=== PATIENT | female | born 1965 | race African-American/Black ===

== ENCOUNTER 2018-04-12 08:19 | Observation (INO) ==
--- NOTE | 2018-04-12 08:21 | PROVIDER DOCUMENTATION ---
HPI-Respiratory General - General Stated Complaint: DYSPNEA Time Seen by Provider: 04/12/18 08:21 Source: EMS Unable to obtain history due to:: urgency (patient in mod to severe resp distress) Allergies/Adverse Reactions: Patient Allergies Allergy/AdvReac Type Severity Reaction Status Date / Time influenza virus vaccine ts Allergy NAUSEA/VOMI Verified 03/23/18 18:55 201... * TING [From Fluarix] Home Medications: Home Medication List Medication Instructions Recorded Confirmed Last Taken Type Albuterol Sulfate Inhaler 2 puff INH [id number] 10/23/17 03/28/18 Unknown History [Ventolin Hfa] Albuterol Sulfate [Proair Hfa] 8.5 gm IH DIRECTED 10/23/17 03/28/18 Unknown History Alprazolam 0.25 mg PO BID 10/23/17 03/28/18 Unknown History Aspirin [Aspir-Low] 81 mg PO DAILY 10/23/17 03/28/18 Unknown History Clonidine [Catapres] 0.1 mg PO PRN PRN #60 tablet 10/23/17 03/28/18 Unknown Rx Hydrocodone/APAP 10 mg/325 mg 1 each PO Q6H PRN PRN 10/23/17 03/28/18 Unknown History [[place]-10] Hydroxyzine HCl 25 mg PO DAILY 10/23/17 03/28/18 Unknown History Metoprolol Succinate [Toprol Xl] 50 mg PO DAILY 10/23/17 03/28/18 Unknown History Montelukast Sodium [Singulair] 10 mg PO DAILY 10/23/17 03/28/18 Unknown History Pramipexole Di-HCl [Mirapex] 0.125 mg PO DAILY 10/23/17 03/28/18 Unknown History Rizatriptan [Maxalt] 10 mg PO DAILY 10/23/17 03/28/18 Unknown History Sertraline HCl [Zoloft] 100 mg PO DAILY 10/23/17 03/28/18 Unknown History Ticagrelor [Brilinta] 90 mg PO DAILY 10/23/17 03/28/18 Unknown History Valsartan [Diovan] 160 mg PO DAILY 10/23/17 03/28/18 Unknown History Zolpidem Tartrate [Ambien] 10 mg PO HS 10/23/17 03/28/18 Unknown History Benzonatate [Tessalon] 100 mg PO TID PRN PRN #20 cap 04/01/18 Unknown Rx Budesonide/Formoterol Inhaler 2 puff INH RTBID inhaler 04/01/18 Unknown Rx [Symbicort 80/4.5 Microgm Inhaler] Doxycycline 100 mg PO BID #14 tab 04/01/18 Unknown Rx Oseltamivir [Tamiflu] 75 mg PO BID #4 cap 04/01/18 Unknown Rx Prednisone See Taper PO DAILY #30 tab 04/01/18 Unknown Rx - History of Present Illness-Resp Nature of Presenting Problem: Sudden onset SOB this am on waking, had had sl uri symptoms for a couple of days prior, and a recent hospital admission for asthma/COPD/Influenza/CHF. En route, patient placed on CPAP by EMS for severe respiratory distress. Quality of Pain: reports: tightness Severity in ED: reports: severe Onset/Duration: reports: 1-3 hours ago Timing: reports: constant, getting worse Context: reports: multiple patients with similar complaints, recent URI Exposure: reports: illness exposure Cough Quality/Degree: reports: severe, dry cough Episode Frequency: occasional episodes Current Respiratory Medication Therapy: Initiated albuterol/atrovent inhale, Initiated other oral steroid Modifying Factors: improves with: albuterol inhaler, oxygen. worse with: exertion, coughing, lying down Associated Symptoms: reports: chest pain/soreness, hurts to breathe, hyperventilating, lightheadedness, shortness of breath, sweaty, wheezing Similar Symptoms Previously?: Yes Recently seen or treated by another doctor?: Yes Review of Systems - Adult - REVIEW OF SYSTEMS - ADULT Constitutional: reports: no symptoms reported Eyes: reports: no symptoms reported Ears, Nose, Mouth & Throat: reports: no symptoms reported Cardiovascular: reports: no symptoms reported Respiratory: reports: no symptoms reported Gastrointestinal: reports: no symptoms reported Genitourinary: reports: no symptoms reported Musculoskeletal: reports: no symptoms reported Integumentary: reports: no symptoms reported Neurological: reports: no symptoms reported Psychiatric: reports: no symptoms reported Endocrine: reports: no symptoms reported Hematologic/Lymphatic: reports: no symptoms reported Allergic/Immunologic: reports: no symptoms reported All Other Systems: Reviewed and Negative Past History - Adult - PAST MEDICAL HISTORY-ADULT Review of Records: reports: Old Records Reviewed, Nursing Assessment Review, Medications Reviewed, Social history reviewed & non-contributory. Major Childhood Illnesses: reports: denies history Cardiovascular: reports: CHF, HTN Respiratory: reports: asthma, COPD, lung disease, other (history of lung mass) Gastrointestinal: reports: GERD Obstetrical/Gynecological: reports: denies history Genitourinary: reports: denies history Musculoskeletal: reports: denies history Neurological: reports: headaches/migraines Psychiatric: reports: depression Endocrine/Immune: reports: denies history Other Conditions: reports: denies history - PRIOR SURGERIES/PROCEDURES Surgical/Procedure History: reports: BTL - PRIOR HOSPITALIZATIONS Prior Hospitalizations: reports: none - IMMUNIZATION STATUS Childhood Immunizations: See Nurse Assessment Flu Vaccine: See Nurse Assessment - FAMILY HISTORY Family History: reviewed, not pertinent - SOCIAL HISTORY Smoking: non-smoker Substance Use: none/never Alcohol Use Frequency: rarely Living Situation: family Physical Exam-General - PHYSICAL EXAM-ADULT Initial Vital Signs Reviewed: Yes (tachypneic, tachycardic) - CONSTITUTIONAL General Appearance: severe distress, anxious, slow to respond - EYES Eyes: PERRL/EOMI, pink conjunctivae - HEAD, EARS, NOSE, MOUTH & THROAT HENMT: normocephalic/atraumatic, moist mucous membranes, normal ENT inspection, pharynx normal - NECK Neck: non-tender, full range of motion, supple, normal inspection - RESPIRATORY Respiratory: chest non-tender, respiratory distress, decreased breath sounds, accessory muscle use, wheezing, dull on percussion, retractions, increased rate - CARDIOVASCULAR Cardiovascular: normal peripheral pulses, regular rate, rhythm, no edema, no gallop, no JVD - GASTROINTESTINAL (ABDOMEN) Abdominal Exam: normal bowel sounds, non tender, soft, no organomegaly, no pulsatile mass - LYMPHATIC Lymphatic: no adenopathy - MUSCULOSKELETAL Back Exam: normal inspection, no CVA tenderness, no vertebral tenderness, CVA tenderness, decreased range of motion Extremity: normal range of motion, non-tender, normal gait, normal inspection, no pedal edema, no calf tenderness - SKIN Integumentary: normal color, normal turgor, warm/dry - NEUROLOGIC Neurologic: tooth cutter clutch II-XII nml as tested, grossly normal, no motor/sensory deficits - PSYCHIATRIC Psych/Mental Status: normal mood/affect, normal thought content, normal thought process, oriented x 3 Progress - PLAN OF CARE/RESULTS Progress/Plan/Lab Results: Vital Signs - 8 hr 04/12/18 08:19 04/12/18 08:20 04/12/18 09:06 Pulse Rate 114 H 114 H 82 Respiratory Rate 30 H 24 14 Blood Pressure 146/110 O2 Sat by Pulse Oximetry 99 99 99 Laboratory Results - last 24 hr 04/12/18 04/12/18 04/12/18 08:25 08:25 08:25 WBC 10.36 RBC 4.96 Hgb 12.7 Hct 39.3 MCV 79.2 L MCH 25.6 L MCHC 32.3 L RDW Std Deviation 16.0 H Plt Count 295 MPV 10.7 H Immature Gran % (Auto) 0.4 Neut % (Auto) 65.1 Lymph % (Auto) 27.8 [place] % (Auto) 6.2 Eos % (Auto) 0.3 Baso % (Auto) 0.2 Immature Gran # (Auto) 0.04 Neut # (Auto) 6.75 H Lymph # (Auto) 2.88 [place] # (Auto) 0.64 H Eos # (Auto) 0.03 Baso # (Auto) 0.02 PT INR Specimen Type Sample Site pH pCO2 pO2 HCO3 Base Excess Oxyhemoglobin ABG O2 Sat (Calculated) ABG O2 Saturation ABG Carboxyhemoglobin ABG Methemoglobin [place] Test A-a O2 Difference Total Hemoglobin Lactate Blood Gas Modality Vent Mode FiO2 % Inspiratory BiPAP Expiratory BiPAP Sodium 139 Potassium 4.3 Chloride 104 Carbon Dioxide 24 L Anion Gap 11 BUN 8 Creatinine 0.7 Estimated GFR/1.73 m2 > 60 BUN/Creatinine Ratio 11 Glucose 143 H Calculated Osmolality 278 Calcium 8.9 Magnesium 1.9 Total Bilirubin 0.80 AST 31 H ALT 39 H Alkaline Phosphatase 74 Creatine Kinase 83 Troponin T Dbb-B-Lpuarvvaniv Pept Total Protein 6.8 Albumin 3.9 Globulin 3.0 Albumin/Globulin Ratio 1.0 Plasma Lactate 1.4 04/12/18 04/12/18 04/12/18 08:25 08:25 08:25 WBC RBC Hgb Hct MCV MCH MCHC RDW Std Deviation Plt Count MPV Immature Gran % (Auto) Neut % (Auto) Lymph % (Auto) [place] % (Auto) Eos % (Auto) Baso % (Auto) Immature Gran # (Auto) Neut # (Auto) Lymph # (Auto) [place] # (Auto) Eos # (Auto) Baso # (Auto) PT 12.1 INR 0.85 Specimen Type Sample Site pH pCO2 pO2 HCO3 Base Excess Oxyhemoglobin ABG O2 Sat (Calculated) ABG O2 Saturation ABG Carboxyhemoglobin ABG Methemoglobin [place] Test A-a O2 Difference Total Hemoglobin Lactate Blood Gas Modality Vent Mode FiO2 % Inspiratory BiPAP Expiratory BiPAP Sodium Potassium Chloride Carbon Dioxide Anion Gap BUN Creatinine Estimated GFR/1.73 m2 BUN/Creatinine Ratio Glucose Calculated Osmolality Calcium Magnesium Total Bilirubin AST ALT Alkaline Phosphatase Creatine Kinase Troponin T < 0.010 Oih-K-Wlxknzrpskt Pept 475 H Total Protein Albumin Globulin Albumin/Globulin Ratio Plasma Lactate 04/12/18 08:36 WBC RBC Hgb Hct MCV MCH MCHC RDW Std Deviation Plt Count MPV Immature Gran % (Auto) Neut % (Auto) Lymph % (Auto) [place] % (Auto) Eos % (Auto) Baso % (Auto) Immature Gran # (Auto) Neut # (Auto) Lymph # (Auto) [place] # (Auto) Eos # (Auto) Baso # (Auto) PT INR Specimen Type ARTERIAL Sample Site R RADIAL pH 7.30 L pCO2 49 H pO2 297 H HCO3 22.8 Base Excess -2.7 Oxyhemoglobin 97.1 ABG O2 Sat (Calculated) 18.3 ABG O2 Saturation 100.2 H ABG Carboxyhemoglobin 2.00 ABG Methemoglobin 1.1 [place] Test YES A-a O2 Difference 70.0 Total Hemoglobin 12.9 Lactate 1.00 Blood Gas Modality BI PAP Vent Mode BIPAP FiO2 % 60.0 Inspiratory BiPAP 18.0 Expiratory BiPAP 8.0 Sodium Potassium Chloride Carbon Dioxide Anion Gap BUN Creatinine Estimated GFR/1.73 m2 BUN/Creatinine Ratio Glucose Calculated Osmolality Calcium Magnesium Total Bilirubin AST ALT Alkaline Phosphatase Creatine Kinase Troponin T Jhz-M-Datiskrioag Pept Total Protein Albumin Globulin Albumin/Globulin Ratio Plasma Lactate Orders Category Date Time Status Klein Cath Insertion ORDERED Care 04/12/18 08:21 Active Misc. NRSG Communication Order DIRECTED Care 04/12/18 10:00 Active Saline Loc NOW Care 04/12/18 08:21 Active CHEST-PORTABLE [RAD] Stat Exams 04/12/18 08:23 Completed ABG [RESP] Routine Lab 04/12/18 08:36 Completed BLOOD CULTURE [BLDCUL] Stat Lab 04/12/18 08:25 Ordered CBC WITH ELECTRONIC DIFF [HEME] Stat Lab 04/12/18 08:25 Completed CK PROFILE [SP CHEM] Stat Lab 04/12/18 08:25 Completed COMPREHENSIVE METABOLIC PANEL [CHEM] Stat Lab 04/12/18 08:[address] Stat Lab 04/12/18 09:40 Received LACTATE, PLASMA [CHEM] Stat Lab 04/12/18 08:25 Completed MAGNESIUM [CHEM] Stat Lab 04/12/18 08:25 Completed PRO B-NATRIURETIC PEPTIDE Stat Lab 04/12/18 08:25 Completed PROTIME WITH INR [COAG] Stat Lab 04/12/18 08:25 Completed TROPONIN T Stat Lab 04/12/18 08:[address] W/POSS RFLX CULT [URINALYSIS] Stat Lab 04/12/18 08:23 Uncollected 0.9% Sodium Chloride Inj [Ns] 1,000 ml Med 04/12/18 08:25 Discontinued IV 999 mls/hr Albuterol 2.5MG/Ipratrop 0.5MG [Duoneb (A & A)] Med 04/12/18 08:24 Discontinued 9 ml INH NOW ONE Azithromycin 500 mg/Ns [Zithromax 500 mg/Ns] Med 04/12/18 09:17 Active 500 mg in 250 ml IV NOW CefTRIAXONE [Rocephin] 1 gm Med 04/12/18 08:25 Discontinued 0.9% Sodium Chloride Inj [Ns] 50 ml IV NOW Methylprednisolone Sod Succ [Solu-Medrol] Med 04/12/18 08:24 Discontinued 125 mg IV NOW ONE Morphine Med 04/12/18 08:24 Discontinued 2 mg IV NOW ONE Morphine Med 04/12/18 09:59 Discontinued 2 mg IV NOW ONE Ondansetron [Zofran] Med 04/12/18 08:24 Discontinued 4 mg IV NOW ONE Aerosol Treatments Routine Oth 04/12/18 08:24 Active Aerosol Treatments Stat Oth 04/12/18 08:24 Active BIPAP Stat Oth 04/12/18 08:22 Active Oxygen Device Stat Oth 04/12/18 08:22 Active EKG [EKG] Stat Ther 04/12/18 08:22 Draft Result Diagrams: 04/12/18 08:25 04/12/18 08:25 - REASSESSMENT Reassessment #1 Time Reassessed: 10:15 Status: improving (better after meds. Will try to wean bipap while in the ED) - EKG 1 Time of EKG reading by physician:: 08:31 EKG Read and Signed by:: Lee Duarte EKG Interpretation (*Must complete 3 of following elements*): Abnormal Rate: 99 Rhythm: Bifascicular block,, NSR [place]: right QRS: LBB, RBB [place] Interval: normal ST Wave: non-specific ST changes - XRAY 1 XRAY Study: Chest Impression: Normal, See EMR Report ( EXAM: CHEST-PORTABLE HISTORY: resp distress TECHNIQUE: Single view of the chest was performed portably. COMPARISON: 03/28/2018 FINDINGS: The cardiomediastinal silhouette is within normal limits. The pulmonary vasculature is not congested. No infiltrate, effusion, or pneumothorax is appreciated. Suboptimal evaluation of the retrocardiac region on this portable study. No significant hyperinflation. IMPRESSION: No acute cardiopulmonary abnormality is identified. Electronically signed by Denita Romero 04/12/2018 8:49 AM 04/12/18 0849 Interpreting Physician: Denita Romero MD Dictated Date/Time: 04/12/18 0847) - CONSULTS/PCP/HOSPITALIST Notification #1 *Consult/PCP/Hospitalist*: VANESSA Gordon Time Discussed: 10:15 ([place]) Consult Disposition: Will see in ED Departure - Departure Date of Disposition Decision: 04/12/18 Time of Disposition Decision: 10:16 DIAGNOSIS: Status asthmaticus with COPD (chronic obstructive pulmonary disease), Respiratory distress Disposition: ADMITTED INPATIENT 09 Certified Medical Emergency: Emergent Condition: Fair Referrals and Follow-Ups: Terrence Caballero MD [Primary Care Provider] - - Critical Care Note This patient required my direct & personal management of CC.: Yes Total Time (mins): 41 Critical Care Statement: This patient required my direct personal management to treat or rule out processes, the absence of which, could potentiallly result in sudden, clinically significant life or limb threatening deterioration. Attestation - Physician/ EDDIE Attestation Patient care was provided by Advanced Practice Provider:: No The physician spent face to face time with patient:: Yes Advanced Practice Provider documentation review:: Supervising physician onsite and consulted in the evaluation and care of this patient. The physician did have a face to face encounter with the patient.
[2018-04-12] MEDS ORDERED: SOLU-MEDROL IV ONE (08:24)
[2018-04-12] MEDS ORDERED: DUONEB (A & A) INH ONE (08:24)
[2018-04-12] MEDS ORDERED: MORPHINE IV ONE ×2 (08:24→09:59)
[2018-04-12] MEDS ORDERED: ZOFRAN IV ONE (08:24)
[2018-04-12] MEDS ORDERED: NS 1,000 ML IV ONE (08:25)
[2018-04-12] MEDS ORDERED: ROCEPHIN 1 GM in NS 50 ML IV ONE (08:25)
[2018-04-12 08:39] LABS: BASO# 0.02 X1000 (0.0-0.2); BASO% 0.2 % (0.0-0.8); EOS# 0.03 X1000 (0.0-0.7); EOS% 0.3 % (0.0-10.0); HEMATOCRIT 39.3 % (37.0-47.0); HEMOGLOBIN 12.7 g/dL (12.0-16.0); IMM GRAN# 0.04 X1000 (0.0-0.04); IMM GRAN% 0.4 % (0.0-0.5); LYMPH# 2.88 X1000 (1.2-3.4); LYMPH% 27.8 % (20.5-51.1); MCH 25.6 PG (27-31); MCHC 32.3 g/dL (33-37); MCV 79.2 FL (81-99); MONO# 0.64 X1000 (0.11-0.59); MONO% 6.2 % (1.7-9.3); MPV 10.7 FL (7.4-10.4); NEUT# 6.75 X1000 (1.4-6.5); NEUT% 65.1 % (42.2-75.2); PLT 295 X1000 (130-400); RBC 4.96 XMIL (4.2-5.4); WBC 10.36 X1000 (4.8-10.8)
--- NOTE | 2018-04-12 08:51 | Diag Imaging Result Doc PS360 ---
EXAM: CHEST-PORTABLE HISTORY: resp distress TECHNIQUE: Single view of the chest was performed portably. COMPARISON: 03/28/2018 FINDINGS: The cardiomediastinal silhouette is within normal limits. The pulmonary vasculature is not congested. No infiltrate, effusion, or pneumothorax is appreciated. Suboptimal evaluation of the retrocardiac region on this portable study. No significant hyperinflation. IMPRESSION: No acute cardiopulmonary abnormality is identified. Electronically signed by Denita Romero 04/12/2018 8:49 AM
[2018-04-12 08:54] LABS: INR 0.85; PROTIME 12.1 Seconds (11.0-16.0)
[2018-04-12 09:01] LABS: BE -2.7 mmoll (-3.0-3.0); BLOOD TYPE ARTERIAL; HCO3-(ACT) 22.8 mmoll (20.0-26.0); METHB 1.1 % (0.0-1.5); O2(CT) 18.3 mL/dL (15.0-23.0); O2HB 97.1 % (95.0-99.0); PCO2(98.6) 49 mmHg (35-45); PO2(98.6) 297 mmHg (60-100); SAMPLE BLOOD; SAO2 100.2 % (95.0-100.0); THB 12.9 g/dL (11.5-17.4)
[2018-04-12 09:02] LABS: AGAP 11; ALBUMIN 3.9 g/dL (3.5-5.0); ALKALINE PHOSPHATASE 74 U/L (32-104); BUN 8 mg/dL (8-22); CALCIUM 8.9 mg/dL (8.8-10.2); CHLORIDE 104 mmol/L (98-107); CK PROFILE 83 U/L (24-173); COSMO 278; CREATININE 0.7 mg/dL (0.5-0.9); ESTIMATED GFR > 60; GLUCOSE 143 mg/dL (70-104); GOT 31 U/L (10-30); GPT 39 U/L (10-36); MAGNESIUM 1.9 mg/dL (1.5-2.7); POTASSIUM 4.3 mmol/L (3.5-5.1); SODIUM 139 mmol/L (136-145); TCO2 24 mmol/L (25-35); TOTAL PROTEIN 6.8 g/dL (6.3-8.3)
[2018-04-12 09:13] LABS: ALLEN TEST YES; MODALITY BI PAP
[2018-04-12] MEDS ORDERED: ZITHROMAX 500 MG/NS 500 MG/250 ML IVPB IV ONE (09:17)
--- NOTE | 2018-04-12 09:39 | EKG Report ---
Test Performed on : 04/12/2018 08:30:24 AM Test Reason : respiratory distress Blood Pressure : / mmHG Vent. Rate : 099 BPM Atrial Rate : 099 BPM P-R Int : 126 ms QRS Dur : 120 ms QT Int : 382 ms P-R-T Axes : 082 -74 049 degrees QTc Int : 490 ms Normal sinus rhythm. Right bundle branch block Left anterior fascicular block Bifascicular block Abnormal ECG When compared with ECG of 18-JUL-2017 10:21, (Unconfirmed) Vent. rate has increased BY 38 BPM Unconfirmed Result
[2018-04-12] MEDS ORDERED: VANCOMYCIN 1 GM/NS 1 GM/250 ML IVPB IV ONE (10:07)
[2018-04-12 10:18] LABS: INFLUENZA A NEGATIVE (NEGATIVE); INFLUENZA B NEGATIVE (NEGATIVE)
[2018-04-12] MEDS ORDERED: ZOFRAN IV PRN (10:43)
[2018-04-12] MEDS ORDERED: DUONEB (A & A) INH PRN (10:47)
[2018-04-12] MEDS: DUONEB (A & A) INH SCH ×4 (11:30→23:18)
--- NOTE | 2018-04-12 11:37 | HISTORY AND PHYSICAL ---
PRIMARY CARE PHYSICIAN: Dr. Caballero CHIEF COMPLAINT: Acute onset of shortness of breath that progressively worsened. HISTORY OF PRESENTING ILLNESS: This is a 52-year-old female who presents to [facility] ER with an acute onset of shortness of breath upon awakening this morning. She was noted to have been admitted to the hospital from 03/28/2018 to 04/01/2018, diagnosed with influenza A and a COPD exacerbation. States that she had been doing well up until this morning when she had the acute onset of shortness of breath. When EMS arrived to her home, they placed her on CPAP, which she still had on when she arrived to the emergency room. She was then converted over to BiPAP and is currently on O2 via nasal cannula, saturating 98%. Her influenza A and B are negative. Chest x-ray showed no acute cardiopulmonary abnormality identified. She is noted to have very decreased breath sounds posteriorly throughout entire lung saunders. Minimal wheezing expiratory noted, so she will be admitted for further evaluation and treatment. PAST MEDICAL HISTORY: COPD, hypertension, coronary artery disease, GERD, major depressive disorder, morbid obesity. She had reported in her chart that she had congestive heart failure, but her last echocardiogram in June 2017 showed an ejection fraction of 60% to 65%. PAST SURGICAL HISTORY: Of a tubal ligation. FAMILY HISTORY: Reviewed and noncontributory. SOCIAL HISTORY: She currently lives with family. Denies any tobacco, alcohol, or illicit drug use. ALLERGIES: To influenza vaccine. HOME MEDICATIONS: A current list will need to be obtained, and we will restart as appropriate. We will place an order for nursing to update and confirm home medications. LABORATORY DATA: Showed a white blood cell count of 10.36, hemoglobin 12.7, hematocrit 39.3, platelets 295,000. PT and INR of 12.1 and 0.85. ABG with a pH of 7.3, pCO2 of 49, PO2 of 297, bicarbonate 22.8, and this was on an FiO2 percentage of 60% on BiPAP. Sodium 139, potassium 4.3, chloride 104, CO2 of 24, BUN of 8, creatinine 0.7, glucose 143, magnesium 1.9. Cardiac enzyme was negative, proBNP of 475. Plasma lactate of 1.4. Influenza A and B were both negative. Chest x-ray showed no acute cardiopulmonary abnormality identified. EKG showed normal sinus with rhythm with a right bundle-branch block at 99. REVIEW OF SYSTEMS: She denied any fever, chills, blurred vision, dizziness. She was positive for shortness of breath, mild cough. Denied any chest pain, abdominal pain, constipation, diarrhea, burning or hurting with urination. PHYSICAL EXAMINATION: VITAL SIGNS: On arrival, she had a pulse of 114, respirations 30, blood pressure was 146/110. She initially arrived again on CPAP, then changed to BiPAP and now is on O2 via nasal cannula. HEENT: Normocephalic, atraumatic. Normal ENT inspection. Oropharynx and nares are clear. Eyes: Pupils are equal, round, reactive to light and accommodation. Extraocular movements are intact. NECK: Normal inspection, normal range of motion. LUNGS: With decreased breath sounds throughout entire posterior lung saunders. There is some minimal expiratory wheezing heard occasionally throughout her posterior lung saunders. Equal lung expansion and chest wall movement is noted at this time. Again, she was in acute respiratory distress when she arrived on CPAP, but has been weaned down now after some breathing treatments and 125 mg of Solu-Medrol IV to O2 via nasal cannula. HEART: Regular rate and rhythm. No murmurs, rubs, or gallops. ABDOMEN: Soft, nontender, nondistended. Bowel sounds are present x4 quadrants. MUSCULOSKELETAL: She has 5/5 strength x4 extremities. NEUROLOGICAL: The cranial nerves 2 through 12 appear grossly intact. ASSESSMENT: 1. An acute chronic obstructive pulmonary disease exacerbation. 2. An acute respiratory failure, improved. 3. Hypertension. 4. History of coronary artery disease, status post stents. PLAN: She will be admitted to the medical unit at [facility]. Placed on O2 per protocol, telemetry. We will give her DuoNeb every 4 hours routinely and every [address] her on Solu-Medrol 80 mg IV every 8 hours, and we will wean as she improves. Rocephin 1 gram IV every 24 hours and Zithromax 500 IV every 24 hours. Recheck a CBC and BMP in the a.m. and again have nursing to update and confirm home medications, then we will review and start as appropriate. Do incentive spirometry and peak flows b.i.d. and further orders after seen by attending. Dictated by VANESSA Perez for Josiah Tucker MD cc: VANESSA Perez MD Dr. Thomas
[2018-04-12] MEDS ORDERED: SOLU-MEDROL IV SCH (16:00)
[2018-04-12] MEDS ORDERED: TESSALON PO PRN (19:20)
[2018-04-12] MEDS ORDERED: CATAPRES PO PRN (19:20)
[2018-04-12] MEDS ORDERED: LASIX IV ONE (19:48)
[2018-04-12] MEDS: SYMBICORT 80/4.5 MICROGM INHALER INH SCH (20:08)
--- NOTE | 2018-04-12 20:39 | HISTORY AND PHYSICAL ---
The patient came in with shortness of breath. She was just here I think just a couple weeks ago with similar process. She just finished steroids 2 days ago and now she is back with significant asthma. Her chest x-ray is clear. I do not think she was particularly hypoxic. A little hypercapnic, but she has improved after BiPAP and treatment. Patient admitted for recurrent COPD exacerbation. She will probably need a long taper of steroids. When she was discharged last time, she went home on ProAir. She was on a prednisone taper. She actually had the flu last time and she was given doxycycline and now she is back. But no flu, no pneumonia per se, but I think we will repeat her chest x-ray here in a little bit. She has CAD, but no clear congestive heart failure. Have not done an echo on her in years, but she had a normal EF. Her proBNP was mildly elevated, but we will continue to follow. cc: Josiah Tucker MD
[2018-04-12] MEDS: AMBIEN PO SCH (22:16)
[2018-04-12] MEDS: XANAX PO SCH (22:16)
[2018-04-12] MEDS: NORCO-10 PO PRN (22:16)
[2018-04-12] MEDS: SOLU-MEDROL IV SCH (23:43)
[2018-04-13 01:08] LABS: BILIRUBIN URINE NEGATIVE (NEGATIVE); BLOOD URINE 1+ (NEGATIVE); CLARITY CLEAR (CLEAR); COLOR YELLOW; GLUCOSE URINE NEGATIVE (NEGATIVE); KETONE URINE NEGATIVE (NEGATIVE); LEUKOCYTES URINE NEGATIVE (NEGATIVE); NITRITE URINE NEGATIVE (NEGATIVE); PROTEIN URINE NEGATIVE (NEGATIVE); SP GRAVITY URINE 1.015; UROBILINOGEN URINE NORMAL
[2018-04-13 01:27] LABS: URINE EPITHELIAL CELLS <10 /HPF (<10); URINE RBC <10 /HPF (<10); URINE WBC <10 /HPF (<10)
[2018-04-13 01:28] LABS: URINE BACTERIA 2+ /HFP; URINE SOURCE CLEAN CATCH
[2018-04-13] MEDS: DUONEB (A & A) INH SCH ×6 (03:25→22:56)
[2018-04-13 06:34] LABS: HEMATOCRIT 35.8 % (37.0-47.0); HEMOGLOBIN 11.3 g/dL (12.0-16.0); IMM GRAN# 0.06 X1000 (0.0-0.04); IMM GRAN% 0.5 % (0.0-0.5); LYMPH# 0.56 X1000 (1.2-3.4); LYMPH% 4.7 % (20.5-51.1); MCH 25.2 PG (27-31); MCHC 31.6 g/dL (33-37); MCV 79.7 FL (81-99); MONO# 0.25 X1000 (0.11-0.59); MONO% 2.1 % (1.7-9.3); MPV 11.3 FL (7.4-10.4); NEUT# 11.14 X1000 (1.4-6.5); NEUT% 92.7 % (42.2-75.2); PLT 242 X1000 (130-400); RBC 4.49 XMIL (4.2-5.4); RDW 16.1 % (11.5-14.5); WBC 12.01 X1000 (4.8-10.8)
[2018-04-13 06:52] LABS: AGAP 11; BUN 15 mg/dL (8-22); CALCIUM 9.2 mg/dL (8.8-10.2); CHLORIDE 102 mmol/L (98-107); COSMO 285; CREATININE 0.7 mg/dL (0.5-0.9); ESTIMATED GFR > 60; GLUCOSE 144 mg/dL (70-104); SODIUM 141 mmol/L (136-145); TCO2 27 mmol/L (25-35)
[2018-04-13 06:58] LABS: ANISOCYTOSIS 1+; BANDS 1 % (0-1); BASO 1 % (0-1); LYMPHS 2 % (21-51); SEGS 96 % (42-75)
[2018-04-13 06:59] LABS: HYPOCHROM OCCASIONAL; LARGE PLATELETS OCCASIONAL; MICROCYTOSIS OCCASIONAL; POIKILOCYTOSIS OCCASIONAL; TARGET CELLS OCCASIONAL
[2018-04-13] MEDS: SYMBICORT 80/4.5 MICROGM INHALER INH SCH ×2 (08:01→19:42)
[2018-04-13] MEDS ORDERED: MAXALT MLT PO PRN (09:00)
[2018-04-13] MEDS: BRILINTA PO SCH (10:07)
[2018-04-13] MEDS: TOPROL XL PO SCH (10:07)
[2018-04-13] MEDS: DIOVAN PO SCH (10:07)
[2018-04-13] MEDS: SINGULAIR PO SCH (10:07)
[2018-04-13] MEDS: MIRAPEX PO SCH (10:08)
[2018-04-13] MEDS: SOLU-MEDROL IV SCH (10:08)
[2018-04-13] MEDS: ASPIRIN EC PO SCH (10:08)
[2018-04-13] MEDS: ROCEPHIN 1 GM in NS 50 ML IV SCH (10:09)
[2018-04-13] MEDS: XANAX PO SCH ×2 (10:09→20:30)
[2018-04-13] MEDS: ZITHROMAX 500 MG/NS 500 MG/250 ML IVPB IV SCH (10:09)
[2018-04-13] MEDS: ATARAX PO SCH (10:09)
[2018-04-13] MEDS: NORCO-10 PO PRN (10:31)
--- NOTE | 2018-04-13 16:50 | ECHO REPORT ---
ORDER DATE: 04/13/2018 INTERPRETING PHYSICIAN: Dr. Gar REQUESTING PHYSICIAN: CLINICAL INDICATIONS: This is a 52-year-old female with congestive heart failure. M-MODE MEASUREMENTS: Right ventricle: cm. Left ventricle end diastole: 5.2 cm. Left ventricle end systole: 3.1 cm. Posterior wall: 1.1 cm. Interventricular septum: 1.1 cm. Left atrium: 3.4 cm. Aortic root: 3.8 cm. SUMMARY OF 2-DIMENSIONAL IMAGIN. The left ventricular function is excellent. Ejection fraction is 65% to 70%. No wall motion abnormality noted. 2. Right ventricle appears to be normal. 3. Aortic valve looks normal. Color flow mapping is unremarkable. 4. Mitral valve opens normally. Color flow mapping is unremarkable. 5. There is question of calcification of mitral annulus. 6. Pulse wave Doppler of mitral inflow is normal. 7. Tissue Doppler of septal and lateral mitral annulus averages 6 cm. 8. There is no definite diastolic dysfunction. 9. Tricuspid valve has some trace regurgitation. 10.Pulmonary pressure is estimated at 38 mmHg. 11.Pulmonic valve looks normal. Color flow mapping is unremarkable. 12.There is no pericardial effusion, mass or thrombus. CONCLUSIONS: In summary, this study shows: 1. Normal left ventricular systolic function. 2. Probably normal diastolic dysfunction. 3. Pulmonary pressure is 38 mmHg. 4. No evidence of significant valvular abnormality. Clinical correlation is recommended. cc: MD Josiah Witt MD
--- NOTE | 2018-04-13 20:24 | PROGRESS NOTE ---
DATE: 04/13/2018 SUBJECTIVE: The patient feels great she says. OBJECTIVE: Vital Signs: Blood pressure is 174/92, heart rate of 74, respiratory rate 20, temperature 97.9 degrees, 98% on 2 L. Cardiovascular: Regular rate and rhythm. Pulmonary: Bilateral breath sounds. Clear to auscultation. GI: Soft, nontender, nondistended. Bowel sounds are positive. LABORATORY DATA: White count 12, hemoglobin and hematocrit 11, 35, platelets 242,000. Basic was normal. PROBLEM LIST: 1. Acute chronic obstructive pulmonary disease exacerbation, she seems to be improving. I think we are going to wean her steroids. 2. Chronic obstructive pulmonary disease exacerbation without clear pneumonia. We will continue to monitor. I think if she is stable she may be able discharge the next 24 hours. 3. Hypertension is controlled on current medications. She has no evidence of heart failure based on her current data. DISPOSITION: Anticipate possible discharge tomorrow if stable. cc: Josiah Tucker MD
[2018-04-13] MEDS: PREDNISONE PO SCH (20:30)
[2018-04-13] MEDS: AMBIEN PO SCH (20:30)
[2018-04-13] MEDS: LASIX PO SCH (20:55)
[2018-04-14] MEDS: DUONEB (A & A) INH SCH ×3 (03:09→11:40)
[2018-04-14 06:28] LABS: HEMATOCRIT 36.6 % (37.0-47.0); HEMOGLOBIN 11.5 g/dL (12.0-16.0); IMM GRAN# 0.08 X1000 (0.0-0.04); IMM GRAN% 0.5 % (0.0-0.5); LYMPH# 0.69 X1000 (1.2-3.4); LYMPH% 4.5 % (20.5-51.1); MCH 25.1 PG (27-31); MCHC 31.4 g/dL (33-37); MCV 79.7 FL (81-99); MONO# 0.37 X1000 (0.11-0.59); MONO% 2.4 % (1.7-9.3); MPV 11.3 FL (7.4-10.4); NEUT# 14.19 X1000 (1.4-6.5); NEUT% 92.6 % (42.2-75.2); PLT 239 X1000 (130-400); RBC 4.59 XMIL (4.2-5.4); RDW 16.3 % (11.5-14.5); WBC 15.33 X1000 (4.8-10.8)
[2018-04-14 06:35] LABS: AGAP 10; BUN 19 mg/dL (8-22); CALCIUM 9.1 mg/dL (8.8-10.2); CHLORIDE 102 mmol/L (98-107); COSMO 286; CREATININE 0.7 mg/dL (0.5-0.9); ESTIMATED GFR > 60; GLUCOSE 142 mg/dL (70-104); POTASSIUM 3.8 mmol/L (3.5-5.1); SODIUM 141 mmol/L (136-145); TCO2 29 mmol/L (25-35)
[2018-04-14 07:05] LABS: LYMPHS 6 % (21-51); SEGS 94 % (42-75)
--- NOTE | 2018-04-14 07:34 | Diag Imaging Result Doc PS360 ---
EXAM: CHEST-PORTABLE INDICATION: dyspnea TECHNIQUE: One view COMPARISON: 04/12/2018 FINDINGS: Inspiration is suboptimal. The lungs are grossly clear. There is no discrete pleural fluid collection or pneumothorax. The cardiomediastinal silhouette and central vasculature are grossly unremarkable. IMPRESSION: Low lung volumes but no definite acute pathology by plain radiograph. Electronically signed by Paresh Woodard 04/14/2018 7:32 AM
[2018-04-14] MEDS: SYMBICORT 80/4.5 MICROGM INHALER INH SCH (08:02)
[2018-04-14] MEDS: DIOVAN PO SCH (10:49)
[2018-04-14] MEDS: BRILINTA PO SCH (10:49)
[2018-04-14] MEDS: ATARAX PO SCH (10:50)
[2018-04-14] MEDS: LASIX PO SCH (10:50)
[2018-04-14] MEDS: PREDNISONE PO SCH (10:50)
[2018-04-14] MEDS: TOPROL XL PO SCH (10:50)
[2018-04-14] MEDS: XANAX PO SCH (10:50)
[2018-04-14] MEDS: ZITHROMAX 500 MG/NS 500 MG/250 ML IVPB IV SCH (10:50)
[2018-04-14] MEDS: MIRAPEX PO SCH (10:50)
[2018-04-14] MEDS: ASPIRIN EC PO SCH (10:51)
[2018-04-14] MEDS: ROCEPHIN 1 GM in NS 50 ML IV SCH (10:51)
[2018-04-14] MEDS: SINGULAIR PO SCH (10:51)
[2018-04-14 11:28] VITALS: BP 170/98
--- NOTE | 2018-04-14 13:51 | DISCHARGE SUMMARY ---
ADMISSION DATE: 04/12/2018 DISCHARGE DATE: DISCHARGE DIAGNOSES: 1. Asthma. 2. Chronic obstructive pulmonary disease (COPD) exacerbation, recurrent. 3. No pneumonia. 4. Recent flu with recent chronic obstructive pulmonary disease (COPD) exacerbation. Briefly, the patient came in with shortness of breath and cough. She had been recently admitted for flu A and COPD exacerbation in March. She actually had just finished her steroids the day before. She came back in for wheezing and shortness of breath. She had to be placed on BiPAP initially, but improved with treatment. Overall, she stabilized within about 24 hours, able to wean her off her O2. She did have an elevation in her white count, but her chest x-ray did not show mavis infiltrates. Also concerned about heart failure but her echo was normal with an EF of 65% to 70%, no diastolic dysfunction, no signs of right atrial enlargement, pulmonary pressure was up, but not consistent with pulmonary hypertension. In any case by the , patient felt stable, and we decided to discharge her home. DISCHARGE MEDICATIONS: Ventolin q.i.d., Xanax 0.25 b.i.d., aspirin 81 daily, [place] 10, hydroxyzine 25, Toprol-XL 50 daily, Singulair 10 daily, Mirapex 0.125 daily, Maxalt 10 daily, Zoloft 100 daily, Brilinta 90 daily, Diovan 160 daily, Ambien 10 at bedtime, DuoNeb q.6 h., azithromycin 250 daily for 3 days, Tessalon Perles, Symbicort 2 puffs b.i.d., Omnicef 300 p.o. b.i.d. for 7 days, Catapres p.r.n., and a prednisone taper over a month this time. DISCHARGE CONDITION: Stable. FOLLOW-UP: Told to follow up with Dr. Terrence Caballero in 1 to 2 weeks. We will continue to follow closely. COORDINATION TIME: A 32-minute discharge. cc: Josiah Tucker MD
== END 2018-04-14 14:49 | disposition home or self-care (01) ==
LOC: P.ED 08:19 → SUATTDRO 10:59 → INTOOBSV 10:59 → P.MEDSURG 10:59
PROVIDERS: ADMIT Internal Medicine; ATTEND Internal Medicine
CPT/HCPCS: 71010; 71045; 80048; 80053; 81001; 82550; 82805; 83605; 83735; 83880; 84484; 85025; 85610; 87040; 87088; 87275; 87276; 87804; 93005; 93306; 94640; 94761; 94799; 96365; 96367; 96375; 99285; A9270; J0456; J0696; J1940; J2270; J2405; J2930; J3370; J7030; J7506; J7512

== ENCOUNTER 2018-09-27 03:40 | Inpatient (IN) ==
[2018-09-27] MEDS ORDERED: DUONEB (A & A) ONE (03:48)
[2018-09-27] MEDS ORDERED: ALBUTEROL NEB ONE (03:48)
[2018-09-27] MEDS ORDERED: MAGNESIUM SULFATE ONE ×2 (03:50→18:31)
[2018-09-27] MEDS ORDERED: EPINEPHRINE SYRINGE ONE ×2 (03:50→18:31)
[2018-09-27] MEDS ORDERED: DUONEB (A & A) INH ONE ×2 (03:52→06:06)
--- NOTE | 2018-09-27 03:52 | PROVIDER DOCUMENTATION ---
HPI-Respiratory General - General Chief Complaint: Asthma Attack Stated Complaint: ASTHMA Time Seen by Provider: 09/27/18 03:52 Source: EMS Allergies/Adverse Reactions: Patient Allergies Allergy/AdvReac Type Severity Reaction Status Date / Time influenza virus vaccine ts Allergy NAUSEA/VOMI Verified 08/13/18 15:29 201... * TING [From [employer]] Home Medications: Home Medication List Medication Instructions Recorded Confirmed Last Taken Type Albuterol Sulfate Inhaler 2 puff INH [id number] 10/23/17 08/13/18 08/12/18 History [Ventolin Hfa] Alprazolam 0.25 mg PO BID 10/23/17 08/13/18 08/12/18 History Aspirin [Aspir-Low] 81 mg PO DAILY 10/23/17 08/13/18 08/12/18 History Clonidine [Catapres] 0.1 mg PO PRN PRN #60 tablet 10/23/17 08/13/18 08/12/18 Rx Hydrocodone/APAP 10 mg/325 mg 1 each PO Q6H PRN PRN 10/23/17 08/13/18 08/06/18 History [[place]-10] Hydroxyzine HCl 25 mg PO DAILY 10/23/17 08/13/18 08/12/18 History Montelukast Sodium [Singulair] 10 mg PO DAILY 10/23/17 08/13/18 08/12/18 History Pramipexole Di-HCl [Mirapex] 0.125 mg PO DAILY 10/23/17 08/13/18 08/12/18 History Rizatriptan [Maxalt] 10 mg PO DAILY 10/23/17 08/13/18 08/12/18 History Sertraline HCl [Zoloft] 100 mg PO DAILY 10/23/17 08/13/18 08/12/18 History Ticagrelor [Brilinta] 90 mg PO DAILY 10/23/17 08/13/18 08/12/18 History Valsartan [Diovan] 160 mg PO DAILY 10/23/17 08/13/18 08/12/18 History Zolpidem Tartrate [Ambien] 10 mg PO HS 10/23/17 08/13/18 08/12/18 History Budesonide/Formoterol Inhaler 2 puff INH RTBID inhaler 04/01/18 08/13/18 08/12/18 Rx [Symbicort 80/4.5 Microgm Inhaler] Albuterol 2.5MG/Ipratrop 0.5MG 3 ml INH RTQ6H #120 neb 04/14/18 08/13/18 08/12/18 Rx [Duoneb] Azithromycin [Zithromax Z-Brent] 250 mg PO DIRECTED #1 pkg 08/13/18 Unknown Rx Methylprednisolone [Medrol Dosepak] 4 mg PO DIRECTED #1 pkg 08/13/18 Unknown Rx Nitrofurantoin Monohyd/M-Cryst 100 mg PO BID #14 cap 08/13/18 Unknown Rx [Macrobid 100 mg Capsule] - History of Present Illness-Resp Nature of Presenting Problem: Patient is a 53 year old black female with severe asthma requiring home oxygen,HTN, morbid obesit who presents by EMS in respiratory distress and lethargy. EMS report low oxygen saturation. Fingerstick glucose on arrival was over 200. Shortly after arrival, patient became alert and responsive. Patient is now answering questions in full sentences and states that her doctor is Terrence Caballero. Review of Systems - Adult - REVIEW OF SYSTEMS - ADULT ROS:: unobtainable per condition Constitutional: reports: see HPI Eyes: reports: no symptoms reported Ears, Nose, Mouth & Throat: reports: no symptoms reported Cardiovascular: reports: see HPI Respiratory: reports: shortness of breath Gastrointestinal: denies: abdominal pain Genitourinary: denies: dysuria Musculoskeletal: reports: no symptoms reported Integumentary: denies: rash Neurological: reports: no symptoms reported Psychiatric: reports: anxiety Endocrine: reports: no symptoms reported Hematologic/Lymphatic: reports: no symptoms reported Allergic/Immunologic: reports: no symptoms reported All Other Systems: Reviewed and Negative Past History - Adult - PAST MEDICAL HISTORY-ADULT Review of Records: reports: Old Records Reviewed, Nursing Assessment Review, Medications Reviewed, Social history reviewed & non-contributory. Major Childhood Illnesses: reports: denies history Cardiovascular: reports: CHF, HTN Respiratory: reports: asthma, COPD, lung disease, other (history of lung mass) Gastrointestinal: reports: GERD Obstetrical/Gynecological: reports: denies history Genitourinary: reports: denies history Musculoskeletal: reports: denies history Neurological: reports: headaches/migraines Psychiatric: reports: depression Endocrine/Immune: reports: denies history Other Conditions: reports: denies history - PRIOR SURGERIES/PROCEDURES Surgical/Procedure History: reports: BTL - PRIOR HOSPITALIZATIONS Prior Hospitalizations: reports: none - IMMUNIZATION STATUS Childhood Immunizations: See Nurse Assessment Flu Vaccine: See Nurse Assessment - FAMILY HISTORY Family History: reviewed, not pertinent Physical Exam-General - PHYSICAL EXAM-ADULT Initial Vital Signs Reviewed: Yes - CONSTITUTIONAL General Appearance: obese, other (initially unresponsive with labored respirations and use of abdominal muscles) - HEAD, EARS, NOSE, MOUTH & THROAT HENMT: normocephalic/atraumatic, moist mucous membranes - NECK Neck: non-tender, full range of motion, supple - RESPIRATORY Respiratory: respiratory distress, decreased breath sounds, accessory muscle use - CARDIOVASCULAR Cardiovascular: tachycardia - GASTROINTESTINAL (ABDOMEN) Abdominal Exam: other (obese, nontender) - LYMPHATIC Lymphatic: no adenopathy - MUSCULOSKELETAL Back Exam: normal inspection Extremity: normal range of motion, non-tender Peripheral Pulses: radial (R): 2+, radial (L): 2+ - SKIN Integumentary: normal color, normal turgor, warm/dry - NEUROLOGIC Neurologic: grossly normal - HEART Score HEART Score: History: Slightly Suspicious HEART Score: ECG: Non-Specific Repolarization Disturbance/LBBB/PM HEART Score: Age: 45-65 Years HEART Score: Risk Factors for Atherosclerotic Disease: 1 or 2 Risk Factors HEART Score: Troponin: < or = Normal Limit Total HEART Score:: 3 Progress - PLAN OF CARE/RESULTS Progress/Plan/Lab Results: Vital Signs - 8 hr 09/27/18 03:53 09/27/18 03:55 09/27/18 04:16 Temperature 96.7 F L Pulse Rate 133 H 133 H 107 H Respiratory Rate 20 14 21 Blood Pressure 215/131 161/109 O2 Sat by Pulse Oximetry 44 L 100 98 09/27/18 06:10 Temperature Pulse Rate 85 Respiratory Rate 17 Blood Pressure O2 Sat by Pulse Oximetry Laboratory Results - last 24 hr 09/27/18 09/27/18 09/27/18 03:45 03:46 03:46 WBC 10.52 RBC 5.32 Hgb 13.0 Hct 42.6 MCV 80.1 L MCH 24.4 L MCHC 30.5 L RDW Std Deviation 16.8 H Plt Count 275 MPV 12.1 H Immature Gran % (Auto) 0.3 Neut % (Auto) 30.7 L Lymph % (Auto) 61.9 H [place] % (Auto) 6.6 Eos % (Auto) 0.1 Baso % (Auto) 0.4 Immature Gran # (Auto) 0.03 Neut # (Auto) 3.24 Lymph # (Auto) 6.51 H [place] # (Auto) 0.69 H Eos # (Auto) 0.01 Baso # (Auto) 0.04 Specimen Type Sample Site pH pCO2 pO2 HCO3 Base Excess Oxyhemoglobin ABG O2 Sat (Calculated) ABG O2 Saturation ABG Carboxyhemoglobin ABG Methemoglobin [place] Test A-a O2 Difference Total Hemoglobin Lactate Blood Gas Modality Vent Mode FiO2 % Inspiratory BiPAP Expiratory BiPAP POC Glucose 207 H D Troponin T < 0.010 Wcn-C-Iyrzyraxwfy Pept Urine Opiates Screen Ur Oxycodone Screen Urine Methadone Screen U Propoxyphene Qual Ur Barbituates Screen Ur Tricyclics Screen Ur Phencyclidine Scrn Ur Amphetamines Screen U Methamphetamines Scrn U Benzodiazepines Scrn Urine Cocaine Screen U Cannabinoids Screen 09/27/18 09/27/18 09/27/18 03:46 03:47 04:01 WBC RBC Hgb Hct MCV MCH MCHC RDW Std Deviation Plt Count MPV Immature Gran % (Auto) Neut % (Auto) Lymph % (Auto) [place] % (Auto) Eos % (Auto) Baso % (Auto) Immature Gran # (Auto) Neut # (Auto) Lymph # (Auto) [place] # (Auto) Eos # (Auto) Baso # (Auto) Specimen Type ARTERIAL Sample Site R BRACHIAL pH 7.07 L* pCO2 73 H* pO2 493 H HCO3 17.0 L Base Excess -10.1 L Oxyhemoglobin 97.2 ABG O2 Sat (Calculated) 19.7 ABG O2 Saturation 100.1 H ABG Carboxyhemoglobin 1.50 ABG Methemoglobin 1.5 [place] Test NO A-a O2 Difference -14.0 Total Hemoglobin 13.4 Lactate 6.70 H* Blood Gas Modality BI PAP Vent Mode BIPAP FiO2 % 80.0 Inspiratory BiPAP 16.0 Expiratory BiPAP 8.0 POC Glucose Troponin T Ppu-S-Vamdhoywrof Pept 601 H Urine Opiates Screen NONE DETECTED Ur Oxycodone Screen NONE DETECTED Urine Methadone Screen NONE DETECTED U Propoxyphene Qual NONE DETECTED Ur Barbituates Screen NONE DETECTED Ur Tricyclics Screen NONE DETECTED Ur Phencyclidine Scrn NONE DETECTED Ur Amphetamines Screen NONE DETECTED U Methamphetamines Scrn NONE DETECTED U Benzodiazepines Scrn NONE DETECTED Urine Cocaine Screen NONE DETECTED U Cannabinoids Screen NONE DETECTED 09/27/18 05:06 WBC RBC Hgb Hct MCV MCH MCHC RDW Std Deviation Plt Count MPV Immature Gran % (Auto) Neut % (Auto) Lymph % (Auto) [place] % (Auto) Eos % (Auto) Baso % (Auto) Immature Gran # (Auto) Neut # (Auto) Lymph # (Auto) [place] # (Auto) Eos # (Auto) Baso # (Auto) Specimen Type ARTERIAL Sample Site R BRACHIAL pH 7.42 pCO2 38 pO2 204 H HCO3 25.2 Base Excess 0.3 Oxyhemoglobin 97.1 ABG O2 Sat (Calculated) 18.2 ABG O2 Saturation 100.4 H ABG Carboxyhemoglobin 2.20 ABG Methemoglobin 1.1 [place] Test NO A-a O2 Difference 34.0 Total Hemoglobin 13.0 Lactate 1.80 Blood Gas Modality BI PAP Vent Mode BIPAP FiO2 % 40.0 Inspiratory BiPAP 16.0 Expiratory BiPAP 6.0 POC Glucose Troponin T Byk-G-Vwqsdcpvxwv Pept Urine Opiates Screen Ur Oxycodone Screen Urine Methadone Screen U Propoxyphene Qual Ur Barbituates Screen Ur Tricyclics Screen Ur Phencyclidine Scrn Ur Amphetamines Screen U Methamphetamines Scrn U Benzodiazepines Scrn Urine Cocaine Screen U Cannabinoids Screen Orders Category Date Time Status [place] Insertion ORDERED Care 09/27/18 03:56 Active CHEST-1 VIEW [RAD] Stat Exams 09/27/18 03:55 Completed ABG [RESP] Routine Lab 09/27/18 03:47 Completed ABG [RESP] Routine Lab 09/27/18 05:06 Completed BLOOD CULTURE [BLDCUL] Stat Lab 09/27/18 04:23 Uncollected BNP [PRO B-NATRIURETIC PEPTIDE] Stat Lab 09/27/18 03:46 Completed CBC WITH ELECTRONIC DIFF [HEME] Stat Lab 09/27/18 03:46 Completed TROPONIN T Stat Lab 09/27/18 03:46 Com[address] DRUG SCREEN [address] Stat Lab 09/27/18 04:01 Completed Albuterol 2.5MG/Ipratrop 0.5MG [Duoneb (A & A)] Med 09/27/18 03:48 Discontinued 3 ml .ROUTE .STK-MED ONE Albuterol 2.5MG/Ipratrop 0.5MG [Duoneb (A & A)] Med 09/27/18 03:52 Discontinued 3 ml INH NOW ONE Albuterol 2.5MG/Ipratrop 0.5MG [Duoneb (A & A)] Med 09/27/18 06:06 Discontinued 3 ml INH NOW ONE Albuterol [Albuterol Neb] Med 09/27/18 03:48 Discontinued 2.5 mg .ROUTE .STK-MED ONE Albuterol [Albuterol Neb] Med 09/27/18 04:18 Discontinued 2.5 mg INH NOW ONE Diphenhydramine [Benadryl] Med 09/27/18 03:55 Discontinued 50 mg IV NOW ONE Epinephrine Syringe Med 09/27/18 03:54 Discontinued 1 mg IV NOW ONE Magnesium Sulfate 1 gm/D5w Med 09/27/18 03:53 Discontinued 1 gm in 100 ml IV NOW Methylprednisolone Sod Succ [Solu-Medrol] Med 09/27/18 03:53 Discontinued 125 mg IV NOW ONE Naloxone [Narcan] Med 09/27/18 03:54 Discontinued 2 mg IV NOW ONE Aerosol Treatments Routine Oth 09/27/18 03:53 Completed Aerosol Treatments Routine Oth 09/27/18 04:18 Completed Aerosol Treatments Stat Ot 09/27/18 03:53 Completed Aerosol Treatments Stat Oth 09/27/18 04:18 Completed BIPAP Stat Oth 09/27/18 03:54 Active neb [Aerosol Treatments] Stat Oth 09/27/18 06:05 Completed EKG [EKG] Stat Ther 09/27/18 04:31 Draft Result Diagrams: 09/27/18 03:46 - XRAY 1 XRAY Study: Chest XRAY Interpretation: NAD - CONSULTS/PCP/HOSPITALIST Notification #1 *Consult/PCP/Hospitalist*: Dr. Hathaway Time Discussed: 06:30 Consult Disposition: Admit Departure - Departure Date of Disposition Decision: 09/27/18 Time of Disposition Decision: 05:57 DIAGNOSIS: Respiratory distress Asthma exacerbation Qualifiers: Asthma severity: severe Asthma persistence: unspecified Qualified Code(s): J45.901 - Unspecified asthma with (acute) exacerbation Respiratory failure Qualifiers: Chronicity: acute Respiratory failure complication: hypoxia and hypercapnia Qualified Code(s): J96.01 - Acute respiratory failure with hypoxia; J96.02 - Acute respiratory failure with hypercapnia Disposition: ADMITTED INPATIENT 09 Certified Medical Emergency: Emergent Condition: Stable Referrals and Follow-Ups: Terrence Caballero MD [Primary Care Provider] - - Critical Care Note This patient required my direct & personal management of CC.: Yes Attestation - Physician/ EDDIE Attestation Patient care was provided by Advanced Practice Provider:: No The physician spent face to face time with patient:: Yes Advanced Practice Provider documentation review:: Supervising physician onsite and consulted in the evaluation and care of this patient. The physician did have a face to face encounter with the patient.
[2018-09-27] MEDS ORDERED: MAGNESIUM SULFATE 1 GM/D5W 1 GM/100 ML IVPB IV ONE (03:53)
[2018-09-27] MEDS ORDERED: SOLU-MEDROL IV ONE (03:53)
[2018-09-27] MEDS ORDERED: NARCAN IV ONE (03:54)
[2018-09-27] MEDS ORDERED: EPINEPHRINE SYRINGE IV ONE (03:54)
[2018-09-27] MEDS ORDERED: BENADRYL IV ONE (03:55)
[2018-09-27 04:03] LABS: BE -10.1 mmoll (-3.0-3.0); BLOOD TYPE ARTERIAL; METHB 1.5 % (0.0-1.5); O2(CT) 19.7 mL/dL (15.0-23.0); O2HB 97.2 % (95.0-99.0); PO2(98.6) 493 mmHg (60-100); SAMPLE BLOOD; SAO2 100.1 % (95.0-100.0); THB 13.4 g/dL (11.5-17.4)
[2018-09-27 04:16] LABS: ALLEN TEST NO; MODALITY BI PAP; PCO2(98.6) 73 mmHg (35-45); pH(98.6) 7.07 (7.35-7.45)
[2018-09-27 04:16] LABS: BASO# 0.04 X1000 (0.0-0.2); BASO% 0.4 % (0.0-0.8); EOS# 0.01 X1000 (0.0-0.7); EOS% 0.1 % (0.0-10.0); HEMATOCRIT 42.6 % (37.0-47.0); IMM GRAN# 0.03 X1000 (0.0-0.04); IMM GRAN% 0.3 % (0.0-0.5); LYMPH# 6.51 X1000 (1.2-3.4); LYMPH% 61.9 % (20.5-51.1); MCH 24.4 PG (27-31); MCHC 30.5 g/dL (33-37); MCV 80.1 FL (81-99); MONO# 0.69 X1000 (0.11-0.59); MONO% 6.6 % (1.7-9.3); MPV 12.1 FL (7.4-10.4); NEUT# 3.24 X1000 (1.4-6.5); NEUT% 30.7 % (42.2-75.2); PLT 275 X1000 (130-400); RBC 5.32 XMIL (4.2-5.4); RDW 16.8 % (11.5-14.5); WBC 10.52 X1000 (4.8-10.8)
[2018-09-27] MEDS ORDERED: ALBUTEROL NEB INH ONE (04:18)
--- NOTE | 2018-09-27 04:33 | EKG Report ---
Test Performed on : 09/27/2018 03:59:31 AM Test Reason : sob Blood Pressure : / mmHG Vent. Rate : 105 BPM Atrial Rate : 105 BPM P-R Int : 136 ms QRS Dur : 134 ms QT Int : 366 ms P-R-T Axes : 077 -64 048 degrees QTc Int : 483 ms Sinus tachycardia. Left axis deviation Right bundle branch block Abnormal ECG When compared with ECG of 13-AUG-2018 16:30, Left anterior fascicular block is no longer present Criteria for Septal infarct are no longer present T wave inversion no longer evident in Inferior leads T wave inversion less evident in Anterolateral leads Unconfirmed Result
[2018-09-27 04:46] LABS: UR AMPHETAMINES QUAL NONE DETECTED (NONE DETECT); UR BARBITUATES QUAL NONE DETECTED (NONE DETECT); UR BENZODIAZEPIN QUAL NONE DETECTED (NONE DETECT); UR CANNABINOIDS QUAL NONE DETECTED (NONE DETECT); UR COCAINE QUAL NONE DETECTED (NONE DETECT); UR METHADONE QUAL NONE DETECTED (NONE DETECT); UR METHAMPHETAMINE QUAL NONE DETECTED (NONE DETECT); UR OPIATES QUAL NONE DETECTED (NONE DETECT); UR OXYCODONE QUAL NONE DETECTED (NONE DETECT); UR PCP QUAL NONE DETECTED (NONE DETECT); UR PROPOXYPHENE QUAL NONE DETECTED (NONE DETECT); UR TCA QUAL NONE DETECTED (NONE DETECT)
[2018-09-27 05:25] LABS: BE 0.3 mmoll (-3.0-3.0); BLOOD TYPE ARTERIAL; HCO3-(ACT) 25.2 mmoll (20.0-26.0); METHB 1.1 % (0.0-1.5); O2(CT) 18.2 mL/dL (15.0-23.0); O2HB 97.1 % (95.0-99.0); PCO2(98.6) 38 mmHg (35-45); PO2(98.6) 204 mmHg (60-100); SAMPLE BLOOD; SAO2 100.4 % (95.0-100.0); pH(98.6) 7.42 (7.35-7.45)
[2018-09-27 05:32] LABS: ALLEN TEST NO; MODALITY BI PAP
--- NOTE | 2018-09-27 06:25 | Diag Imaging Result Doc PS360 ---
EXAM: CHEST-1 VIEW HISTORY: sob TECHNIQUE: Chest single view COMPARISON: 08/13/2018 FINDINGS: The lungs are well expanded. The heart is not enlarged. The vessels are not distended. There are no infiltrates. No effusion identified. IMPRESSION: Negative exam. Electronically signed by Dorian Delgado 09/27/2018 6:23 AM
[2018-09-27] MEDS ORDERED: ATIVAN IV ONE (07:16)
[2018-09-27] MEDS: DUONEB (A & A) INH SCH ×5 (08:17→22:42)
[2018-09-27] MEDS ORDERED: SOLU-MEDROL IV SCH (10:00)
[2018-09-27] MEDS ORDERED: XANAX PO PRN (12:18)
[2018-09-27] MEDS ORDERED: ZANAFLEX PO PRN (12:18)
[2018-09-27] MEDS ORDERED: DUONEB (A & A) INH PRN (12:29)
[2018-09-27 12:51] LABS: AGAP 12; ALBUMIN 4.2 g/dL (3.5-5.0); ALKALINE PHOSPHATASE 118 U/L (32-104); BUN 10 mg/dL (8-22); CALCIUM 9.3 mg/dL (8.8-10.2); CHLORIDE 101 mmol/L (98-107); COSMO 276; CREATININE 0.9 mg/dL (0.5-0.9); ESTIMATED GFR > 60; GLUCOSE 130 mg/dL (70-104); GOT 82 U/L (10-30); GPT 68 U/L (10-36); POTASSIUM 3.9 mmol/L (3.5-5.1); SODIUM 138 mmol/L (136-145); TCO2 25 mmol/L (25-35)
[2018-09-27 12:52] LABS: HEMOGLOBIN A1C 5.6 % (4.8-6.0)
[2018-09-27] MEDS: NORCO-10 PO PRN (14:01)
[2018-09-27 14:02] LABS: BILIRUBIN URINE NEGATIVE (NEGATIVE); BLOOD URINE 3+ (NEGATIVE); CLARITY VERY CLOUDY (CLEAR); COLOR BROWN; GLUCOSE URINE NEGATIVE (NEGATIVE); KETONE URINE TRACE mg/dL (NEGATIVE); LEUKOCYTES URINE 1+ (NEGATIVE); NITRITE URINE POSITIVE (NEGATIVE); PROTEIN URINE 2+(100 mg/dL) mg/dL (NEGATIVE); UROBILINOGEN URINE NORMAL
[2018-09-27] MEDS: ROCEPHIN 1 GM in NS 50 ML IV SCH (14:02)
[2018-09-27 14:13] LABS: URINE EPITHELIAL CELLS <10 /HPF (<10); URINE RBC <10 /HPF (<10); URINE WBC <10 /HPF (<10)
[2018-09-27 14:14] LABS: URINE BACTERIA 4+ /HFP; URINE CAST NONE SEEN /LPF; URINE CRYSTAL NONE SEEN /HPF; URINE SOURCE CATH; URINE YEAST NONE SEEN /HPF
--- NOTE | 2018-09-27 15:57 | HISTORY AND PHYSICAL ---
PRIMARY CARE PROVIDER: Dr. Terrence Caballero CHIEF COMPLAINT: Shortness of breath. HISTORY OF PRESENT ILLNESS: Ms. Elva Mahmood is a 53-year-old female with a medical history of COPD, asthma, GERD, and coronary artery disease with a cardiac stent, and morbid obesity who states since yesterday afternoon she was having shortness of breath, and has home oxygen 2 L that she can wear as needed. She does not wear it on a continuous basis, but she wore her oxygen of 2 L. She did have breathing treatments, and it did not improve her breathing. On Thursday night, she slept through the night. They woke up Thursday morning or yes morning, and their AC unit went out which worsened her shortness of breath throughout the day to the point that she presented in respiratory failure with respiratory acidosis. She was urgently placed on BiPAP which within 2 hours improved her respiratory status to a normal pH and CO2. She received IV steroids. She will be started on prophylactic antibiotic, continued on IV steroids, nebulizers, and we will monitor her in the ICU for now. PAST MEDICAL HISTORY: 1. Asthma. 2. COPD with p.r.n. oxygen 2 L. 3. Hypertension. 4. Coronary artery disease. No myocardial infarction, but she does have 1 cardiac stent that was placed July of 2016. 5. GERD. 6. Chronic migraines. 7. Major depressive disorder. 8. Morbid obesity with a BMI of 46.7. 9. Reported congestive heart failure with chronic lower extremity swelling. 10. Seasonal allergies. PAST SURGICAL HISTORY: 1. 08/04/2016. Cardiac stent. 2. Uterine ablation. 3. Tubal ligation. SOCIAL HISTORY: Denies tobacco, alcohol or illicit drug use. FAMILY HISTORY: On her mother's side of the family, she had an aunt and a grandmother who both had breast cancer, and her father had asthma. ALLERGIES: Influenza vaccine just makes her feel very sick. HOME MEDICATIONS: 1. Xanax 0.25 mg p.o. twice daily. 2. Ambien 10 mg p.o. nightly p.r.n. 3. Aspirin 81 mg p.o. daily. Daily. 4. Brilinta 90 mg p.o. twice daily. 5. Valsartan 320 mg p.o. daily. 6. Hydroxyzine 25 mg p.o. 4 times daily. 7. Maxalt 10 mg p.o. daily. 8. Mirapex 0.125 mg p.o. nightly. 9. [place] 10s 1 tab p.o. twice daily. 10. Singular 10 mg p.o. daily. 11. Tizanidine 4 mg p.o. twice daily p.r.n. 12. Albuterol/Atrovent inhaled as needed. 13. Zoloft 150 mg p.o. daily. 14. Clonidine 0.1 mg p.o. p.r.n. 15. Cymbalta. 16. Symbicort. REVIEW OF SYSTEMS: Fourteen point review of systems are complete, and all were negative except for those mentioned above in HPI. Currently, complaining of leg cramps, nasal congestion and a migraine. PHYSICAL EXAMINATION: VITAL SIGNS: Temperature 96.7 degrees, heart rate 87, respiratory rate 14, blood pressure 181/114, and 99% on 2 L nasal cannula. 5 feet 5 inches tall, and 280 pounds. GENERAL: Ms. Elva Mahmood is a 53-year-old female. She is in no acute distress. She is able to answer questions appropriately. HEENT: Atraumatic, normocephalic. Pupils equal, round, and reactive to light. Extraocular movements intact. Mucous membranes are moist. NECK: Trachea midline. CARDIOVASCULAR: S1, S2. Regular rate and rhythm. No rubs, gallops, murmurs. Trace lower extremity edema. +2 dorsalis and radial pulses. Negative JVD or carotid bruits. PULMONARY: Mild expiratory wheezes. Decreased in the bases. No accessory muscle use or work of breathing noted. Tolerating 2 L nasal cannula. GI: Soft, nontender, and nondistended. Positive bowel sounds x4. EXTREMITIES: Moves all extremities equally. Full range of motion. NEUROLOGIC: Alert and oriented x3. Follows commands. Sensory is intact. SKIN: Warm, dry, and intact. LABORATORY DATA: White blood cells 10,000, hemoglobin 13, hematocrit 42, and platelet count 275,000. ABGs pH 7.42, pCO2 38, PO2 204, bicarb 25, base excess 0.3 and saturation 97%. Lactate 1.8. Originally, had a lactate of 6.7. Sodium 138, potassium 3.9, BUN 10, creatinine 0.9, glucose 130, calcium 9.3, hemoglobin A1c is 5.6. Total bilirubin 0.6, AST 82. ALT 68. Troponin less than 0.01. ProBNP 601. Albumin 4.2. Urine drug screen negative. IMAGING: Chest x-ray negative exam. EKG sinus tachycardia with rate 105. QTc 483. There is a left axis deviation of right bundle branch block. ASSESSMENT AND PLAN: 1. Chronic obstructive pulmonary disease exacerbation status asthmaticus. She had CO2 retention with respiratory acidosis which quickly resolved with BiPAP. She is tolerating 2 L nasal cannula. She has received breathing treatments, IV steroids, and she will prophylactically started on Rocephin. Her ABG lactate was 6, and is back down to normal. She also received epinephrine in the ER and Ativan in the ER, a g of Mag in the ER, and even gave her Narcan, that was early this morning. It does not appear that she received any IV fluids for her lactate but she quickly returned to normal. 2. We will continue nebulizers, oxygen and steroids. Add budesonide. 3. History of GERD. Currently not on a PPI. 4. Depression. Continue Zoloft. 5. History of coronary artery disease but no chest pain. Negative troponin. Continue aspirin and Brilinta. 6. Complains of leg cramps. She states this tends to be chronic for her. She takes Zanaflex for it. We will continue that. 7. Migraine. We will continue her medication for that as well. 8. Seasonal allergies. We will continue Singulair. 9. Anxiety. We will continue the p.r.n. Xanax. 10. Deep venous thrombosis prophylaxis. Lovenox 40 mg subcu every 24 hours as scheduled. 11. Lovenox 40 mg subcu q. 24 hours. Dictated by VANESSA Cr for Adair Hathaway MD cc: VANESSA Cr MD Wayne E. Thomas, MD MTDD
[2018-09-27] MEDS: HUMULIN R (PARKWAY) SUBQ SCH (16:50)
[2018-09-27] MEDS: SOLU-MEDROL IV SCH ×2 (16:50→21:30)
[2018-09-27] MEDS: MAXALT MLT PO PRN (17:26)
[2018-09-27] MEDS: PULMICORT INH SCH (19:07)
[2018-09-27] MEDS: MIRAPEX PO SCH (21:28)
[2018-09-27] MEDS: BRILINTA PO SCH (21:30)
--- NOTE | 2018-09-27 22:28 | HISTORY AND PHYSICAL ---
ADDENDUM: Patient seen and examined by myself. Full note dictated and discussed with nurse practitioner. In the ER, patient was on BiPAP. She presented to the ER unresponsive. The history is per her who noted that she had been feeling fine until late last evening. Symptoms worsened and then she woke him up this morning and told him that she was having trouble breathing. Her pH in the ER was 7.03, currently is 7.4 after having been on BiPAP. She is much more awake, alert. She is able to answer questions and respond to commands. We will attempt to wean her off the BiPAP. We will transition her to the ICU, and we will follow. cc: Adair Hathaway MD
[2018-09-28] MEDS: HUMULIN R (PARKWAY) SUBQ SCH ×5 (01:03→21:34)
[2018-09-28] MEDS: NORCO-10 PO PRN ×2 (02:17→16:23)
[2018-09-28] MEDS: DUONEB (A & A) INH SCH ×6 (03:14→22:56)
[2018-09-28] MEDS: SOLU-MEDROL IV SCH ×4 (04:30→21:33)
[2018-09-28] MEDS: PROTONIX PO SCH (06:18)
[2018-09-28 07:27] LABS: EOS# 0.01 X1000 (0.0-0.7); EOS% 0.1 % (0.0-10.0); HEMATOCRIT 38.7 % (37.0-47.0); HEMOGLOBIN 12.3 g/dL (12.0-16.0); IMM GRAN# 0.02 X1000 (0.0-0.04); IMM GRAN% 0.2 % (0.0-0.5); LYMPH# 0.47 X1000 (1.2-3.4); MCH 24.2 PG (27-31); MCHC 31.8 g/dL (33-37); MCV 76.2 FL (81-99); MONO# 0.35 X1000 (0.11-0.59); MPV 11.3 FL (7.4-10.4); NEUT# 10.92 X1000 (1.4-6.5); NEUT% 92.7 % (42.2-75.2); PLT 227 X1000 (130-400); RBC 5.08 XMIL (4.2-5.4); RDW 16.9 % (11.5-14.5); WBC 11.77 X1000 (4.8-10.8)
--- NOTE | 2018-09-28 07:41 | Diag Imaging Result Doc PS360 ---
EXAM: CHEST-2 VIEWS HISTORY: short of breath TECHNIQUE: Chest two views COMPARISON: 09/27/2018 FINDINGS: The lungs are well expanded. The heart is not enlarged. The vessels are not distended. Questionable small infiltrate in the medial segment of the right middle lobe. No pleural effusions. IMPRESSION: Questionable right middle lobe infiltrate Electronically signed by Dorian Delgado 09/28/2018 7:39 AM
[2018-09-28 07:43] LABS: AGAP 11; ALBUMIN 4.3 g/dL (3.5-5.0); ALKALINE PHOSPHATASE 102 U/L (32-104); BUN 13 mg/dL (8-22); CALCIUM 9.6 mg/dL (8.8-10.2); CHLORIDE 104 mmol/L (98-107); COSMO 280; CREATININE 0.8 mg/dL (0.5-0.9); ESTIMATED GFR > 60; GLUCOSE 137 mg/dL (70-104); GOT 34 U/L (10-30); GPT 46 U/L (10-36); POTASSIUM 4.3 mmol/L (3.5-5.1); SODIUM 139 mmol/L (136-145); TCO2 25 mmol/L (25-35)
[2018-09-28] MEDS: MAXALT MLT PO PRN (07:57)
[2018-09-28] MEDS: ZOLOFT PO SCH (08:00)
[2018-09-28] MEDS: LOVENOX SUBQ SCH (08:00)
[2018-09-28] MEDS: BRILINTA PO SCH ×2 (08:00→21:33)
[2018-09-28] MEDS: SINGULAIR PO SCH (08:00)
[2018-09-28] MEDS: ASPIRIN EC PO SCH (08:01)
[2018-09-28] MEDS: PULMICORT INH SCH ×2 (08:27→19:17)
[2018-09-28] MEDS: DIOVAN PO SCH (10:16)
[2018-09-28] MEDS: NORVASC PO SCH ×2 (10:17→21:33)
--- NOTE | 2018-09-28 10:17 | PROGRESS NOTE ---
DATE: 09/28/2018 SUBJECTIVE: The patient reports breathing better. She reports headache. Apparently her blood pressure medication has not been restarted yet. Her blood pressure has been running in the 180s systolic blood pressure. Other than that, she is feeling okay. She has history of migraines anyway. OBJECTIVE: Vital Signs: Temperature 98.2 degrees, heart rate 87, respiratory rate 15, blood pressure 170/92, O2 saturation 100% on 2 L nasal cannula. General Examination: This is a chronically ill-looking, morbidly obese, 53-year-old female, lying in bed in no acute distress. Cardiovascular exam: S1, S2 heard. No murmurs, gallops, or rubs. Regular rate and rhythm. Respiratory exam: Minimal expiratory wheezing noted in both pulmonary bases. Patient is not using any accessory muscles or having work of breathing. Abdomen: Soft. Obese, nontender to palpation. Bowel sounds present. No organomegaly. Extremities: No clubbing, cyanosis, or edema. Peripheral pulses present in both legs. Neurological exam: Patient is alert and oriented x3. Moves 4 extremities. LABORATORY DATA: White cell count 11.77, hemoglobin 12.3, hematocrit 38.7 platelets 227 with normal BMP. AST 34, ALT 46. ASSESSMENT AND PLAN: 1. Acute hypercapnic, hypoxemic respiratory failure secondary to chronic obstructive pulmonary disease exacerbation. Now, she is getting much better. She is breathing okay after she uses BiPAP. Now, her arterial blood gas is back to normal. Also not requiring BiPAP. At this time, we will continue with oxygen supplementation at 2 liters of oxygen per nasal cannula. We will continue with DuoNeb every 4 hours, intravenous steroids. We will continue with antibiotics. 2. Urinary tract infection. The urine culture shows gram-negative rods. We will see what the final culture shows. 3. Gastroesophageal reflux disease. We will continue with Protonix. 4. Depression. We will continue with Zoloft. 5. Coronary artery disease. Patient is not complaining of any chest pain. At this point, we will continue aspirin and Brilinta. 6. Hypertension. We are going to restart blood pressure medication, in this case valsartan 320 mg oral daily. We will add amlodipine 5 mg oral twice daily to his current treatment. 7. Migraine. I think that has been treated by hypertension. She is on her usual medication for migraine. We will continue to monitor. 8. Seasonal allergies. We will continue with Singulair. 9. Deep vein thrombosis prophylaxis. Patient is on Lovenox. 10. Disposition: At this point, patient is much more stable. We will transfer this patient out of the intensive care unit today and, if her numbers are looking much better, we will discharge her tomorrow. cc: Rayo Walters MD MTDD
[2018-09-28 10:51] LABS: ANISOCYTOSIS 1+; BANDS 1 % (0-1); LYMPHS 6 % (21-51); MONO 3 % (1-9); SEGS 90 % (42-75)
[2018-09-28] MEDS: ROCEPHIN 1 GM in NS 50 ML IV SCH (12:23)
[2018-09-28] MEDS: MORPHINE IV PRN (17:04)
[2018-09-28] MEDS: ZOFRAN IV PRN (17:05)
[2018-09-28] MEDS: MIRAPEX PO SCH (21:32)
[2018-09-29] MEDS: DUONEB (A & A) INH SCH ×3 (03:03→11:02)
[2018-09-29] MEDS: SOLU-MEDROL IV SCH ×2 (04:23→09:02)
[2018-09-29 05:24] LABS: BE 2.3 mmoll (-3.0-3.0); BLOOD TYPE ARTERIAL; HCO3-(ACT) 26.7 mmoll (20.0-26.0); METHB 1.5 % (0.0-1.5); O2(CT) 16.8 mL/dL (15.0-23.0); O2HB 96.1 % (95.0-99.0); PCO2(98.6) 49 mmHg (35-45); PO2(98.6) 120 mmHg (60-100); SAMPLE BLOOD; SAO2 99.5 % (95.0-100.0); THB 12.3 g/dL (11.5-17.4); pH(98.6) 7.37 (7.35-7.45)
[2018-09-29 05:26] LABS: ALLEN TEST YES; MODALITY CANNULA
[2018-09-29] MEDS: PROTONIX PO SCH (06:16)
[2018-09-29] MEDS: NORCO-10 PO PRN (06:20)
[2018-09-29] MEDS: HUMULIN R (PARKWAY) SUBQ SCH (06:39)
[2018-09-29] MEDS: PULMICORT INH SCH (06:55)
[2018-09-29 07:11] LABS: AGAP 11; BUN 17 mg/dL (8-22); CALCIUM 9.2 mg/dL (8.8-10.2); CHLORIDE 104 mmol/L (98-107); COSMO 287; CREATININE 0.8 mg/dL (0.5-0.9); ESTIMATED GFR > 60; GLUCOSE 138 mg/dL (70-104); POTASSIUM 4.5 mmol/L (3.5-5.1); SODIUM 142 mmol/L (136-145); TCO2 27 mmol/L (25-35)
[2018-09-29 07:15] LABS: HEMATOCRIT 41.2 % (37.0-47.0); HEMOGLOBIN 12.9 g/dL (12.0-16.0); IMM GRAN# 0.02 X1000 (0.0-0.04); IMM GRAN% 0.2 % (0.0-0.5); LYMPH# 0.46 X1000 (1.2-3.4); LYMPH% 3.5 % (20.5-51.1); MCH 24.4 PG (27-31); MCHC 31.3 g/dL (33-37); MCV 77.9 FL (81-99); MONO# 0.33 X1000 (0.11-0.59); MONO% 2.5 % (1.7-9.3); MPV 12.2 FL (7.4-10.4); NEUT# 12.45 X1000 (1.4-6.5); NEUT% 93.8 % (42.2-75.2); PLT 239 X1000 (130-400); RBC 5.29 XMIL (4.2-5.4); RDW 17.3 % (11.5-14.5); WBC 13.26 X1000 (4.8-10.8)
[2018-09-29 07:48] LABS: LYMPHS 6 % (21-51); SEGS 94 % (42-75)
[2018-09-29 08:14] VITALS: BP 171/92
[2018-09-29] MEDS: BRILINTA PO SCH (08:49)
[2018-09-29] MEDS: DIOVAN PO SCH (08:49)
[2018-09-29] MEDS: NORVASC PO SCH (08:49)
[2018-09-29] MEDS: ASPIRIN EC PO SCH (08:50)
[2018-09-29] MEDS: SINGULAIR PO SCH (08:50)
[2018-09-29] MEDS: LOVENOX SUBQ SCH (08:50)
[2018-09-29] MEDS: ZOLOFT PO SCH (08:50)
[2018-09-29] MEDS: ZOFRAN IV PRN (08:51)
[2018-09-29] MEDS: MORPHINE IV PRN (08:51)
--- NOTE | 2018-09-30 04:10 | DISCHARGE SUMMARY ---
ADMISSION DATE: 09/27/2018 DISCHARGE DATE: 09/29/2018 ADMISSION DIAGNOSES: 1. Chronic obstructive pulmonary disease exacerbation with status asthmaticus, CO2 retention with respiratory acidosis which resolved with BiPAP. 2. Gastroesophageal reflux disease. 3. Depression. 4. History of coronary artery disease, on Brilinta and aspirin. 5. Leg cramps. 6. Migraines. 7. Seasonal allergies. 8. Anxiety. DISCHARGE DIAGNOSES: 1. Acute hypercapnic hypoxemic respiratory failure secondary to chronic obstructive pulmonary disease exacerbation and status asthmaticus, much improved, not requiring BiPAP, only on 2 L. Has as needed oxygen at home. Continued on nebulizers and steroids. 2. Urinary tract infection with gram-negative rods. 3. Gastroesophageal reflux disease. 4. Depression, on Zoloft. 5. Coronary artery disease. No chest pain. On Brilinta and aspirin. 6. Hypertension. Started on blood pressure medication valsartan 320 mg by mouth daily and amlodipine 5 mg by mouth twice daily. 7. Migraine, resolved. 8. Seasonal allergies. 9. Urinary tract infection with Klebsiella pneumoniae. Resistant to ampicillin. CONSULTATION: None. SURGERIES AND PROCEDURES: None. HOSPITAL COURSE: Ms Elva Mahmood is a 53-year-old female with a medical history of COPD, asthma, GERD, CAD with cardiac stent, morbid obesity, who apparently the day before admission was starting to have shortness of breath. She wore her 2 L of oxygen at home. Did her nebulizers but it did not improve. She slept through the night. Woke up Thursday morning with AC unit out which made her shortness of breath progressively worse. She was placed on BiPAP and within 2 hours she was back to her baseline ABGs. Started on prophylactic antibiotics. Continued on IV steroids and nebulizers. She was immediately placed in the ICU but normalized or stabilized quickly. She was transferred to the floor. She continued to be hypertensive. Blood pressure medication was added and she is deemed appropriate for discharge home. DISCHARGE VITAL SIGNS: Temperature. 98.1, heart rate 91, respiratory rate 22, blood pressure 171/92, O2 saturation 100% on 2 L nasal cannula. DISCHARGE LABORATORY DATA: White blood cells 13,000, hemoglobin 12, hematocrit 41, platelet count 239,000. ABGs, pH 7.37, pCO2 of 49, PO2 of 120, bicarbonate 26, base excess 2.3, saturation 96% with a lactate of 0.8, that is on 2 L nasal cannula. Sodium 142, potassium 4.5, BUN 17, creatinine 0.8, glucose 138, calcium 9.2. She had a hemoglobin A1c of 5.6 while she is here. Urinalysis was positive and came back with a UTI with Klebsiella pneumoniae. PERTINENT IMAGING: Chest x-ray on the , negative exam. Chest x-ray on the , questionable right middle lobe infiltrate. EKG, sinus tachycardia, rate 105, QTc was 483. DISCHARGE MEDICATIONS: 1. Valsartan 160 mg p.o. twice a day. 2. Levaquin 750 mg p.o. daily for 10 days. 3. Medrol Dosepak. 4. [place] 10 one tablet p.o. t.i.d. p.r.n. 5. Norvasc 5 mg p.o. twice daily. 6. Xanax 0.25 mg p.o. twice daily p.r.n. 7. Ambien 10 mg p.o. nightly p.r.n. 8. Aspirin 81 mg p.o. daily. 9. Brilinta 90 mg p.o. twice daily. 10. Maxalt 10 mg p.o. daily. 11. Mirapex 0.125 mg p.o. nightly. 12. Singular 10 mg p.o. daily. 13. Tizanidine 4 mg p.o. twice daily p.r.n. 14. Zoloft 150 mg p.o. daily. DISCHARGE DIET: Heart healthy. DISCHARGE ACTIVITY: As tolerated. DISCHARGE INSTRUCTIONS: Make sure to complete your antibiotics even if you start to feel better. Drink plenty of fluids. Keep doing your deep breathing and coughing exercises. Oxygen as needed. If your condition changes, contact your physician and/or return to the emergency department. Changes may include, but are not limited to, shortness of breath, increased fatigue, excessive bleeding, unexplained weight loss or gain, unimaginable pain, signs or symptoms of infection. DISCHARGE PHYSICIAN FOLLOWUP: Dr. Terrence Caballero on 10/06/2018 at 08:30 a.m. DISCHARGE DISPOSITION: Home. Dictated by VANESSA Cr for Rayo Walters MD Addendum: Patient seen and examined by myself. Agree with VANESSA note. It reflects my assessment and plan. Patient is being discharged in stable condition. Will be seen by PCP in a week. cc: VANESSA Cr MD Wayne E. Thomas, MD MTDD
== END 2018-09-29 11:38 | disposition home or self-care (01) | DRG 189 ==
LOC: P.ED 03:40 → SUATTDRO 03:41 → P.EDIPHOLD 03:41 → P.MEDSURG 09-28 10:26
PROVIDERS: ATTEND Internal Medicine
CPT/HCPCS: 51702; 71010; 71020; 71045; 71046; 80048; 80053; 80104; 80301; 80305; 81001; 82805; 82948; 83036; 83735; 83880; 84484; 85025; 87040; 87077; 87088; 87186; 93005; 94640; 94761; 94799; 96374; 96375; 96376; 99285; A9270; G0431; G0434; G0477; J0171; J0696; J1650; J1815; J2060; J2270; J2405; J2920; J2930; J3475; XXXXX

== ENCOUNTER 2018-11-18 17:34 | Inpatient (IN) ==
[2018-11-18] MEDS ORDERED: DUONEB (A & A) ONE (17:50)
[2018-11-18] MEDS ORDERED: ASPIRIN PO ONE (17:51)
[2018-11-18] MEDS ORDERED: DUONEB (A & A) INH ONE ×2 (18:05→21:02)
[2018-11-18] MEDS ORDERED: MAGNESIUM SULFATE 2 GM/S.W.I. 2 GM/50 ML IVPB IV ONE (18:06)
[2018-11-18] MEDS ORDERED: LASIX IV ONE (18:07)
[2018-11-18 18:08] LABS: BASO# 0.03 X1000 (0.0-0.2); BASO% 0.6 % (0.0-0.8); EOS# 0.05 X1000 (0.0-0.7); HEMOGLOBIN 11.9 g/dL (12.0-16.0); IMM GRAN# 0.01 X1000 (0.0-0.04); IMM GRAN% 0.2 % (0.0-0.5); LYMPH# 1.47 X1000 (1.2-3.4); LYMPH% 29.9 % (20.5-51.1); MCH 24.1 PG (27-31); MCHC 30.5 g/dL (33-37); MCV 79.1 FL (81-99); MONO# 0.41 X1000 (0.11-0.59); MONO% 8.4 % (1.7-9.3); MPV 11.1 FL (7.4-10.4); NEUT# 2.94 X1000 (1.4-6.5); NEUT% 59.9 % (42.2-75.2); PLT 216 X1000 (130-400); RBC 4.93 XMIL (4.2-5.4); RDW 16.3 % (11.5-14.5); WBC 4.91 X1000 (4.8-10.8)
[2018-11-18] MEDS ORDERED: SOLU-MEDROL IV ONE (18:08)
--- NOTE | 2018-11-18 18:10 | EKG Report ---
Test Performed on : 11/18/2018 5:51:00 PM Test Reason : sob Blood Pressure : / mmHG Vent. Rate : 091 BPM Atrial Rate : 091 BPM P-R Int : 120 ms QRS Dur : 130 ms QT Int : 396 ms P-R-T Axes : 047 -67 027 degrees QTc Int : 487 ms Normal sinus rhythm. Right bundle branch block Left anterior fascicular block Bifascicular block Abnormal ECG When compared with ECG of 27-SEP-2018 03:59, (Unconfirmed) No significant change was found Unconfirmed Result
[2018-11-18 18:20] LABS: AGAP 11; BUN 9 mg/dL (8-22); CALCIUM 8.9 mg/dL (8.8-10.2); CHLORIDE 104 mmol/L (98-107); COSMO 285; CREATININE 0.8 mg/dL (0.5-0.9); ESTIMATED GFR > 60; GLUCOSE 95 mg/dL (70-104); POTASSIUM 3.9 mmol/L (3.5-5.1); SODIUM 144 mmol/L (136-145); TCO2 29 mmol/L (25-35)
[2018-11-18 18:24] LABS: AGAP 11; ALBUMIN 4.5 g/dL (3.5-5.0); ALKALINE PHOSPHATASE 78 U/L (32-104); BUN 9 mg/dL (8-22); CALCIUM 8.9 mg/dL (8.8-10.2); CHLORIDE 105 mmol/L (98-107); COSMO 287; CREATININE 0.8 mg/dL (0.5-0.9); ESTIMATED GFR > 60; GLUCOSE 96 mg/dL (70-104); GOT 15 U/L (10-30); GPT 20 U/L (10-36); POTASSIUM 3.9 mmol/L (3.5-5.1); SODIUM 145 mmol/L (136-145); TCO2 30 mmol/L (25-35); TOTAL PROTEIN 6.8 g/dL (6.3-8.3)
[2018-11-18 18:29] LABS: CK PROFILE 176 U/L (24-173)
[2018-11-18 18:34] LABS: INR 0.86; PROTIME 12.2 Seconds (11.0-16.0); PTT 28.1 Seconds (22.3-41.8)
--- NOTE | 2018-11-18 18:42 | PROVIDER DOCUMENTATION ---
This chart was entered by Charity Cohn Scribe, acting as scribe for Mark Shoemaker MD. HPI-Respiratory General - General Chief Complaint: Asthma Attack Stated Complaint: SOB Time Seen by Provider: 11/18/18 18:01 Source: patient Allergies/Adverse Reactions: Patient Allergies Allergy/AdvReac Type Severity Reaction Status Date / Time influenza virus vaccine ts Allergy NAUSEA/VOMI Verified 11/18/18 17:46 201... * TING [From Fluarix] Home Medications: Home Medication List Medication Instructions Recorded Confirmed Last Taken Type Alprazolam 0.25 mg PO BID PRN 10/23/17 09/27/18 08/12/18 History Aspirin [Aspir-Low] 81 mg PO DAILY 10/23/17 09/27/18 08/12/18 History Montelukast Sodium [Singulair] 10 mg PO DAILY 10/23/17 09/27/18 08/12/18 History Pramipexole Di-HCl [Mirapex] 0.125 mg PO HS 10/23/17 09/27/18 08/12/18 History Rizatriptan [Maxalt] 10 mg PO DAILY 10/23/17 09/27/18 08/12/18 History Sertraline HCl [Zoloft] 150 mg PO DAILY 10/23/17 09/27/18 08/12/18 History Ticagrelor [Brilinta] 90 mg PO BID 10/23/17 09/27/18 08/12/18 History Zolpidem Tartrate [Ambien] 10 mg PO HS PRN 10/23/17 09/27/18 08/12/18 History Tizanidine HCl 4 mg PO BID PRN 09/27/18 09/27/18 Unknown History Amlodipine [Norvasc] 5 mg PO BID #60 tab 09/29/18 Unknown Rx Hydrocodone/APAP 10 mg/325 mg 1 tab PO TID PRN PRN #15 tab 09/29/18 Unknown Rx [[place]-10] Levofloxacin [Levaquin] 750 mg PO DAILY #10 tab 09/29/18 Unknown Rx Methylprednisolone [Medrol Dosepak] 4 mg PO DIRECTED #1 pkg 09/29/18 Unknown Rx Valsartan [Diovan] 160 mg PO BID #60 tab 09/29/18 Unknown Rx - History of Present Illness-Resp Nature of Presenting Problem: pt is a 53 yr old female rpesenting with 1 week complaint of increased shortness of breath, wheezing, chest tightness, pt reports long hx of asthma. pt has used neb tx, rescue inhalers and oxygen without relief. pt reports neb tx x 4 today, with no relief. pt also reports productive cough with yellow sputum. no fever/chills. no other complaints. Quality of Pain: reports: tightness Severity in ED: reports: moderate Onset/Duration: reports: 1 week ago Timing: reports: changing over time, getting worse Exposure: reports: unknown cause Cough Quality/Degree: reports: moderate, productive cough, sputum (yellow) Episode Frequency: occasional episodes Current Respiratory Medication Therapy: Initiated see nurses note Modifying Factors: improves with: exertion (worsens), albuterol inhaler (no improvement), albuterol nebulizer (no improvement), oxygen (no improvement) Associated Symptoms: reports: chest pain/soreness, cough, shortness of breath, wheezing. denies: fever/chills Similar Symptoms Previously?: Yes Recently seen or treated by another doctor?: Yes Review of Systems - Adult - REVIEW OF SYSTEMS - ADULT Constitutional: denies: chills, fever Eyes: reports: no symptoms reported Ears, Nose, Mouth & Throat: reports: no symptoms reported Cardiovascular: reports: chest pain. denies: palpitations, syncope Respiratory: reports: cough, dyspnea on exertion, pleurisy, shortness of breath, wheezing Gastrointestinal: reports: no symptoms reported Genitourinary: reports: no symptoms reported Musculoskeletal: reports: no symptoms reported Integumentary: reports: no symptoms reported Neurological: denies: dizziness/vertigo, headache/migraines Psychiatric: reports: no symptoms reported Endocrine: reports: no symptoms reported Hematologic/Lymphatic: reports: no symptoms reported Allergic/Immunologic: reports: no symptoms reported All Other Systems: Reviewed and Negative Past History - Adult - PAST MEDICAL HISTORY-ADULT Review of Records: reports: Old Records Reviewed, Nursing Assessment Review, Medications Reviewed, Social history reviewed & non-contributory. Major Childhood Illnesses: reports: denies history Cardiovascular: reports: CHF, HTN Respiratory: reports: asthma, COPD, lung disease, other (history of lung mass) Gastrointestinal: reports: GERD Obstetrical/Gynecological: reports: denies history Genitourinary: reports: denies history Musculoskeletal: reports: denies history Neurological: reports: headaches/migraines Psychiatric: reports: depression Endocrine/Immune: reports: denies history Other Conditions: reports: denies history - PRIOR SURGERIES/PROCEDURES Surgical/Procedure History: reports: BTL - PRIOR HOSPITALIZATIONS Prior Hospitalizations: reports: none - IMMUNIZATION STATUS Childhood Immunizations: See Nurse Assessment Flu Vaccine: See Nurse Assessment - FAMILY HISTORY Family History: reviewed, not pertinent - SOCIAL HISTORY Smoking: non-smoker Substance Use: denies Living Situation: family Physical Exam-General - PHYSICAL EXAM-ADULT Initial Vital Signs Reviewed: Yes - CONSTITUTIONAL General Appearance: alert, moderate distress, obese - EYES Eyes: PERRL/EOMI - HEAD, EARS, NOSE, MOUTH & THROAT HENMT: normocephalic/atraumatic, moist mucous membranes, normal ENT inspection - NECK Neck: non-tender, full range of motion, supple, normal inspection - RESPIRATORY Respiratory: chest non-tender, no accessory muscle use, respiratory distress, decreased breath sounds, wheezing, prolonged expiration, increased rate - CARDIOVASCULAR Cardiovascular: normal peripheral pulses, regular rate, rhythm - GASTROINTESTINAL (ABDOMEN) Abdominal Exam: normal bowel sounds, non tender, soft - LYMPHATIC Lymphatic: no adenopathy - MUSCULOSKELETAL Back Exam: normal inspection Extremity: normal range of motion, non-tender, normal gait, normal inspection - SKIN Integumentary: normal color, normal turgor, warm/dry - NEUROLOGIC Neurologic: grossly normal, no motor/sensory deficits - PSYCHIATRIC Psych/Mental Status: normal mood/affect - HEART Score HEART Score: History: Slightly Suspicious HEART Score: ECG: Non-Specific Repolarization Disturbance/LBBB/PM HEART Score: Age: 45-65 Years HEART Score: Risk Factors for Atherosclerotic Disease: 1 or 2 Risk Factors HEART Score: Troponin: < or = Normal Limit Total HEART Score:: 3 Progress - PLAN OF CARE/RESULTS Progress/Plan/Lab Results: Vital Signs - 8 hr 11/18/18 17:38 11/18/18 17:58 Temperature 98 F Pulse Rate 93 H 87 Respiratory Rate 22 23 Blood Pressure 200/129 O2 Sat by Pulse Oximetry 96 98 Laboratory Results - last 24 hr 11/18/18 11/18/18 11/18/18 17:47 17:47 17:47 WBC 4.91 RBC 4.93 Hgb 11.9 L Hct 39.0 MCV 79.1 L MCH 24.1 L MCHC 30.5 L RDW Std Deviation 16.3 H Plt Count 216 MPV 11.1 H Immature Gran % (Auto) 0.2 Neut % (Auto) 59.9 Lymph % (Auto) 29.9 [place] % (Auto) 8.4 Eos % (Auto) 1.0 Baso % (Auto) 0.6 Immature Gran # (Auto) 0.01 Neut # (Auto) 2.94 Lymph # (Auto) 1.47 [place] # (Auto) 0.41 Eos # (Auto) 0.05 Baso # (Auto) 0.03 PT INR PTT (Actin FS) Sodium 144 Potassium 3.9 Chloride 104 Carbon Dioxide 29 Anion Gap 11 BUN 9 Creatinine 0.8 Estimated GFR/1.73 m2 > 60 BUN/Creatinine Ratio 11 Glucose 95 Calculated Osmolality 285 Calcium 8.9 Total Bilirubin AST ALT Alkaline Phosphatase Creatine Kinase Creatine Kinase Index CK-MB (CK-2) Troponin T [id number] Pept 210 Total Protein Albumin Globulin Albumin/Globulin Ratio 11/18/18 11/18/18 11/18/18 17:47 17:47 17:47 WBC RBC Hgb Hct MCV MCH MCHC RDW Std Deviation Plt Count MPV Immature Gran % (Auto) Neut % (Auto) Lymph % (Auto) [place] % (Auto) Eos % (Auto) Baso % (Auto) Immature Gran # (Auto) Neut # (Auto) Lymph # (Auto) [place] # (Auto) Eos # (Auto) Baso # (Auto) PT 12.2 INR 0.86 PTT (Actin FS) 28.1 Sodium 145 Potassium 3.9 Chloride 105 Carbon Dioxide 30 Anion Gap 11 BUN 9 Creatinine 0.8 Estimated GFR/1.73 m2 > 60 BUN/Creatinine Ratio 11 Glucose 96 Calculated Osmolality 287 Calcium 8.9 Total Bilirubin 0.80 AST 15 ALT 20 Alkaline Phosphatase 78 Creatine Kinase 176 H Creatine Kinase Index 1.9 CK-MB (CK-2) 3.37 Troponin T < 0.010 [id number] Pept Total Protein 6.8 Albumin 4.5 Globulin 2.0 Albumin/Globulin Ratio 2.0 Orders Category Date Time Status Cardiac Monitoring DIRECTED Care 11/18/18 17:51 Active Oxygen Therapy- ED Nursing DIRECTED Care 11/18/18 17:50 Active Saline Loc NOW Care 11/18/18 17:50 Active CHEST-2 VIEWS [RAD] Stat Exams 11/18/18 17:51 Completed BASIC METABOLIC PANEL [CHEM] Stat Lab 11/18/18 17:47 Completed CBC WITH ELECTRONIC DIFF [HEME] Stat Lab 11/18/18 17:47 Completed CK PROFILE [SP CHEM] Stat Lab 11/18/18 17:47 Completed COMPREHENSIVE METABOLIC PANEL [CHEM] Stat Lab 11/18/18 17:47 Completed PRO B-NATRIURETIC PEPTIDE Stat Lab 11/18/18 17:47 Completed PROTIME WITH INR [COAG] Stat Lab 11/18/18 17:47 Completed PTT [COAG] Stat Lab 11/18/18 17:47 Completed TROPONIN T Stat Lab 11/18/18 17:47 Completed Albuterol 2.5MG/Ipratrop 0.5MG [Duoneb (A & A)] Med 11/18/18 17:50 Discontinued 9 ml .ROUTE .STK-MED ONE Albuterol 2.5MG/Ipratrop 0.5MG [Duoneb (A & A)] Med 11/18/18 18:05 Discontinued 9 ml INH NOW ONE Aspirin Med 11/18/18 17:51 Discontinued 325 mg PO NOW ONE Furosemide [Lasix] Med 11/18/18 18:07 Discontinued 40 mg IV NOW ONE Magnesium Sulfate 2 gm/S.w.i. Med 11/18/18 18:06 Discontinued 2 gm in 50 ml IV NOW Methylprednisolone Sod Succ [Solu-Medrol] Med 11/18/18 18:08 Discontinued 125 mg IV NOW ONE Aerosol Treatments Routine Oth 11/18/18 18:06 Active Aerosol Treatments Stat Oth 11/18/18 17:50 Active Aerosol Treatments Stat Oth 11/18/18 18:06 Active Asthma/COPD (Adult) Stat Oth 11/18/18 17:50 Ordered CP/SOB/Palp >45 yrs of Age Stat Oth 11/18/18 17:51 Ordered EKG [EKG] Stat Ther 11/18/18 17:51 Draft Transfer/Admit Order [TRANSFER] Routine Transfer 11/18/18 18:55 Ordered Result Diagrams: 11/18/18 17:47 11/18/18 17:47 - EKG 1 Time of EKG reading by physician:: 17:52 EKG Read and Signed by:: Mark Shoemaker EKG Interpretation (*Must complete 3 of following elements*): Abnormal (left anterior fasicluar block, bifasicular block) Rate: 91 Rhythm: nsr [place]: normal QRS: RBB PA Interval: normal ST Wave: normal - CONSULTS/PCP/HOSPITALIST Notification #1 *Consult/PCP/Hospitalist*: Dr Hathaway Time Discussed: 18:45 Reason/Comments: discussed plan of care for pt admission Consult Disposition: Admit Departure - Departure Date of Disposition Decision: 11/18/18 Time of Disposition Decision: 18:45 DIAGNOSIS: Status asthmaticus with COPD (chronic obstructive pulmonary disease), Respiratory distress, Acute bronchitis with asthma with acute exacerbation Disposition: ADMITTED INPATIENT 09 Certified Medical Emergency: Emergent Condition: Stable Referrals and Follow-Ups: Terrence Caballero MD [Primary Care Provider] - - Critical Care Note This patient required my direct & personal management of CC.: Yes Total Time (mins): 40 Critical Care Statement: This patient required my direct personal management to treat or rule out processes, the absence of which, could potentiallly result in sudden, clinically significant life or limb threatening deterioration. Attestation - Physician/ EDDIE Attestation Patient care was provided by Advanced Practice Provider:: No The physician spent face to face time with patient:: Yes Advanced Practice Provider documentation review:: Supervising physician onsite and consulted in the evaluation and care of this patient. The physician did have a face to face encounter with the patient. This chart was documented by the indicated scribe, (Charity Cohn Scribe) and accurately reflects the services I performed and decisions made by me, Mark Shoemaker MD, as attested by the provider's signature.
[2018-11-18 18:51] LABS: CK INDEX 1.9 (0.0-2.5); CK-MB 3.37 ng/mL (0.0-5.0)
--- NOTE | 2018-11-18 19:14 | Diag Imaging Result Doc PS360 ---
EXAM: CHEST-2 VIEWS INDICATION: sob TECHNIQUE: 2 views COMPARISON: 09/28/2018 FINDINGS: The lungs are grossly clear. There is no discrete pleural fluid collection or pneumothorax. The cardiomediastinal silhouette and central vasculature are grossly unremarkable. IMPRESSION: No evidence of acute pathology by plain radiograph. Electronically signed by Paresh Woodard 11/18/2018 7:12 PM
[2018-11-18] MEDS ORDERED: APRESOLINE IV PRN (20:19)
[2018-11-18] MEDS ORDERED: TYLENOL PO PRN (22:56)
[2018-11-18] MEDS ORDERED: ZOFRAN IV PRN (22:56)
[2018-11-18] MEDS ORDERED: DUONEB (A & A) INH PRN (22:56)
[2018-11-18] MEDS: DUONEB (A & A) INH SCH ×2 (23:15)
--- NOTE | 2018-11-19 01:22 | HISTORY AND PHYSICAL ---
CHIEF COMPLAINT: Shortness of breath. HISTORY OF PRESENT ILLNESS: Patient is a 53-year-old female who presented to the hospital with 1 week complaint of cough, congestion, shortness of breath, increased work of breathing. She has had some chest tightness. Denies any real fevers or chills. Notes that she had already used her breathing treatments 4 times today prior to coming to the ER. While in the ER, she has been given several nebulized treatments as well as steroids. Chest x-ray was clear. ALLERGIES: Flu vaccine causing nausea. MEDICATIONS: Aspirin, Singulair, Mirapex, Maxalt, Zoloft, Brilinta, Ambien. REVIEW OF SYSTEMS: Increased cough, congestion, shortness of breath. Denies any fevers. Denies any production to her cough. Denies any headaches, blurred vision, change in vision. Denies any focalized numbness, tingling, weakness. Denies skin rashes, weight loss or weight gain. Denies any chest pain, palpitations. PAST MEDICAL HISTORY: History of congestive heart failure, hypertension, COPD, history of lung mass, reflux, migraines, depression. She has had a BTL. FAMILY HISTORY: Positive for COPD. SOCIAL HISTORY: Patient is a nonsmoker. Does not drink or use illicit substances. PHYSICAL EXAMINATION: VITAL SIGNS: Reviewed. Temperature 98 degrees, pulse 93, respiratory 22, BP stable. GENERAL: Patient is awake, alert. She is in mild respiratory distress, much improved from earlier presentation in the ER. HEENT: Normocephalic. NECK: Supple. CARDIOVASCULAR: Regular rate. CHEST: Decreased but equal breath sounds. Faint wheezing throughout. Mildly labored. ABDOMEN: Soft, nondistended. EXTREMITIES: Moves all extremities. ASSESSMENT: 1. Asthma exacerbation. 2. Chronic anxiety, depression. 3. Obesity. 4. Hypertension. PLAN: We will continue patient in the hospital. Her blood pressure is actually a little elevated. We are going to add hydralazine as needed, breathing treatments and Solu-Medrol and we will follow. cc: Adair Hathaway MD
[2018-11-19] MEDS ORDERED: SOLU-MEDROL IV SCH (02:00)
[2018-11-19] MEDS: DUONEB (A & A) INH SCH ×5 (03:03→19:09)
[2018-11-19 07:18] LABS: HEMATOCRIT 41.3 % (37.0-47.0); HEMOGLOBIN 12.5 g/dL (12.0-16.0); MCH 23.5 PG (27-31); MCHC 30.3 g/dL (33-37); MCV 77.8 FL (81-99); MPV 11.4 FL (7.4-10.4); RBC 5.31 XMIL (4.2-5.4); WBC 6.76 X1000 (4.8-10.8)
[2018-11-19 07:39] LABS: AGAP 13; ALBUMIN 4.6 g/dL (3.5-5.0); ALKALINE PHOSPHATASE 80 U/L (32-104); BUN 10 mg/dL (8-22); CALCIUM 9.1 mg/dL (8.8-10.2); CHLORIDE 102 mmol/L (98-107); COSMO 281; CREATININE 0.7 mg/dL (0.5-0.9); ESTIMATED GFR > 60; GLUCOSE 150 mg/dL (70-104); GOT 15 U/L (10-30); GPT 20 U/L (10-36); SODIUM 140 mmol/L (136-145); TCO2 25 mmol/L (25-35); TOTAL PROTEIN 7.5 g/dL (6.3-8.3)
[2018-11-19] MEDS ORDERED: ZANAFLEX PO PRN (07:47)
[2018-11-19] MEDS ORDERED: XANAX PO PRN (07:47)
[2018-11-19] MEDS ORDERED: AMBIEN PO PRN (07:47)
[2018-11-19] MEDS: MOTRIN PO PRN ×2 (07:50→22:43)
[2018-11-19] MEDS ORDERED: VENTOLIN HFA INH PRN (09:00)
[2018-11-19] MEDS: ZOLOFT PO SCH (10:01)
[2018-11-19] MEDS: DIOVAN PO SCH ×2 (10:01→20:40)
[2018-11-19] MEDS: BRILINTA PO SCH ×2 (10:02→20:40)
[2018-11-19] MEDS: NORVASC PO SCH ×2 (10:02→20:40)
[2018-11-19] MEDS: SINGULAIR PO SCH (10:02)
[2018-11-19] MEDS: ASPIRIN EC PO SCH (10:03)
[2018-11-19] MEDS: MAXALT MLT PO SCH (10:03)
[2018-11-19] MEDS: NORCO-10 PO PRN ×2 (10:12→17:41)
[2018-11-19] MEDS: SOLU-MEDROL IV SCH ×2 (10:14→17:41)
[2018-11-19] MEDS: SYMBICORT 160/4.5 MICROGM INHALER INH SCH ×2 (11:08→19:09)
[2018-11-19] MEDS ORDERED: DUONEB (A & A) INH SCH (11:30)
--- NOTE | 2018-11-19 17:59 | PROGRESS NOTE ---
DATE: 11/19/2018 SUBJECTIVE: The patient notes that she is feeling a lot better from a breathing standpoint, but has a terrible headache. Notes that she normally has migraines and take medications at home for such. OBJECTIVE: Temperature 97.5, pulse 93, respiratory rate 18, BP 168/115.General: Patient is awake and alert. She is in no respiratory distress, but is in obvious distress due to pain from her migraine. HEENT: Normocephalic. Neck: Supple. Cardiovascular: Regular rate. Chest: Much improved. Faint wheezing. Better air movement. Abdomen: Soft, obese, nondistended. Extremities: Moves all extremities. Neurologic: No changes. ASSESSMENT: 1. Chronic obstructive pulmonary disease with exacerbation. 2. Chronic anxiety. 3. Migraine. 4. Obesity. 5. Hypertension. PLAN: We will continue the patient in the hospital. Continue Solu-Medrol, although will decrease to 40 b.i.d. Continue breathing treatments, oxygen, and we will follow. cc: Adair Hathaway MD
[2018-11-19] MEDS ORDERED: MIRAPEX PO SCH (21:00)
[2018-11-20] MEDS: DUONEB (A & A) INH SCH ×4 (00:08→10:58)
[2018-11-20] MEDS: SOLU-MEDROL IV SCH ×3 (02:23→09:48)
[2018-11-20] MEDS: SYMBICORT 160/4.5 MICROGM INHALER INH SCH (07:56)
[2018-11-20] MEDS: ZOLOFT PO SCH (08:00)
[2018-11-20] MEDS: DIOVAN PO SCH (08:00)
[2018-11-20] MEDS: NORVASC PO SCH (08:00)
[2018-11-20] MEDS: BRILINTA PO SCH (08:00)
[2018-11-20] MEDS: ASPIRIN EC PO SCH (08:01)
[2018-11-20] MEDS: MAXALT MLT PO SCH (08:01)
[2018-11-20] MEDS: SINGULAIR PO SCH (08:01)
[2018-11-20 10:29] VITALS: BP 176/102
--- NOTE | 2018-11-20 17:14 | DISCHARGE SUMMARY ---
ADMISSION DATE: 11/18/2018 DISCHARGE DATE: 11/20/2018 DIAGNOSES: 1. Asthma exacerbation, resolved. 2. Chronic anxiety and depression. 3. Obesity. 4. Hypertension. DIAGNOSTICS: Chest x-ray revealed no evidence of acute pathology by plain radiograph. HOSPITAL COURSE: Ms Mahmood presented to the emergency room complaining of shortness of breath stating that she was in an asthma exacerbation. She was treated with steroids to taper, duo nebs q.4 hours with q.2 hours p.r.n. Thankfully this has resolved. She states she is back to her normal breathing with breath sounds clear. She was hypertensive initially with blood pressures in the 200s over 120s to 130s for which we added hydralazine and blood pressures have since decreased to the 160s to 180s over 90s. She did develop a terrible headache that she felt was her migraine and we did continue her home medications. DISCHARGE PHYSICAL EXAM: Vital signs: Blood pressure is 180/90 with a heart rate of 89, respirations are 18, temperature is 98.3 degrees with room air saturations 97%. General: This is a 53-year-old female who is sitting up in the room in no distress. HEENT: Head is normocephalic, atraumatic. Mucous membranes are moist. Neck: Supple with trachea midline. Cardiovascular: Regular rate and rhythm. S1 and S2 appreciated. She has no lower extremity edema. Peripheral pulses are palpable x4 extremities. Calves are nontender bilateral. Pulmonary: Breath sounds are clear with no increased work of breathing noted. Chest rises and falls symmetric respiration. Gastrointestinal: Abdomen soft, nontender, nondistended with bowel sounds in all 4 quadrants. Genitourinary: No CVA or suprapubic tenderness. Neurologic: She is alert and oriented. Skin: Warm and dry. DISCHARGE MEDICATIONS: Ambien 10 mg p.o. at bedtime, Diovan 160 p.o. b.i.d., Brilinta 90 mg p.o. b.i.d., Zoloft 150 p.o. daily, Maxalt 10 mg p.o. daily, Mirapex 0.125 at bedtime, Singulair 10 p.o. daily, Symbicort 160/4.5 two puffs b.i.d., Norvasc 5 mg p.o. b.i.d., Xanax 0.25 p.o. b.i.d. p.r.n., Ventolin inhaler 1 puff 4 times a day as needed, DuoNeb q.4 hours p.r.n., Medrol Dosepak take as directed, azithromycin 250 mg p.o. daily for 5 days. FOLLOWUP: Dr. Terrence Caballero, her primary care provider. She needs to call Thursday to get appointment scheduled within the next week. She has been instructed to call to be seen sooner or return to the emergency room for chest pain, palpitations, any syncope, dizziness, any increasing shortness of breath, cough, temperature greater than 101, any chills, PND, orthopnea, nausea, vomiting, diarrhea, constipation, black or bloody vomitus or stools, any hematuria, dysuria, frequency, urgency. She is being discharged home in stable condition with family members. TIME SPENT: Greater than 30 minutes. Dictated by VANESSA Schreiber for Adair Hathaway MD cc: MD Adair Henriquez MD [facility]
== END 2018-11-20 13:38 | disposition home or self-care (01) | DRG 202 ==
LOC: P.ED 17:34 → P.MEDSURG 17:35
PROVIDERS: ATTEND Family Medicine